=== PATIENT | female | born 1995 | race Hispanic/Latino ===

== ENCOUNTER 2019-11-30 15:34 | Inpatient (IN) | payer OTHER ==
[~2019-11-30] VITALS: Ht 162.6 cm; Wt 96.5 kg
--- OUTSIDE RECORDS SUMMARY | 2019-11-30 15:37 | XMS REPORT ---
Author Author Admin, Adams Organization [facility] Address [address] [place] [address] Phone Allergies, Adverse Reactions, Alerts Allergy Name Reaction Description Start Date Severity Status Provider BACTRIM Critical Active Kranthi Vaz MD Conditions or Problems Problem Name Problem Code Onset Date Status Entry Date Provider Comment Standard Description Annotate 32 Weeks Gestation of Active Kranthi Vaz MD Encounter for unspecified screening of mother BMI 40 - 44.9, adult Active Kranthi Vaz MD Body Mass Index 40.0-44.9, adult DYSURIA 788.1 Active Kranthi Vaz MD Dysuria Supervision of other high risk pregnancies, third trimester Active Kranthi Vaz MD Other high-risk Encounter for supervision of normal first , second trimester Active Kranthi Vaz MD Supervision of normal first Obesity (BMI=30-39.9) Active Kranthi Vaz MD Obesity, unspecified Cervix, screening for malignant neoplasm V76.2 Active Kranthi Vaz MD Screening for malignant neoplasms of the cervix Chronic pain syndrome 338.4 Active Kranthi Vaz MD Chronic pain syndrome Encounter for supervision of other normal , first trimester Active Kranthi Vaz MD Supervision of other normal 30 Weeks Gestation of Inactive Kranthi Vaz MD Encounter for unspecified screening of mother 30 Weeks Gestation of Inactive Kranthi Vaz MD 26 Weeks Gestation of Inactive Kranthi Vaz MD Encounter for unspecified screening of mother 26 Weeks Gestation of Inactive Kranthi Vaz MD 22 Weeks Gestation of Inactive Kranthi Vaz MD Encounter for unspecified screening of mother 22 Weeks Gestation of Inactive Kranthi Vaz MD 19 Weeks Gestation of Inactive Kranthi Vaz MD Encounter for unspecified screening of mother 19 Weeks Gestation of Inactive Kranthi Vaz MD 14 Weeks Gestation of Inactive Kranthi Vaz MD Encounter for unspecified screening of mother 14 Weeks Gestation of Inactive rKanthi Vaz MD Less than 8 weeks gestation of Inactive Kranthi Vaz MD Encounter for unspecified screening of mother Less than 8 weeks gestation of Inactive Kranthi Vaz MD Medication List Medication Instructions Start Date Stop Date Generic Name NDC Status Provider Patient Instruction MACRODANTIN 100 MG ORAL CAPSULE 1 tab by mouth twice a day for 7 days NITROFURANTOIN MACROCRYSTAL 41380542152 Active Kranthi Vaz MD Active BLOOD PRESSURE MONITOR check BP daily (monitor) BLOOD PRESSURE MONITORING 36011256259 Active Kranthi Vaz MD Active VITAFOL ULTRA 29-0.6-0.4-200 MG ORAL CAPSULE take 1 capsule by mouth daily PRENAT-FE [id number]-[id number]-VF-[id number] 99192021355 Active Kranthi Vaz MD Active DIFLUCAN 150 MG ORAL TABLET 1 po x 1 DIFLUCAN 150 MG ORAL TABLET 937510 FLUCONAZOLE Inactive MACROBID 100 MG ORAL CAPSULE 1 pill By Mouth Twice a Day x 10 days MACROBID 100 MG ORAL CAPSULE 6987998 NITROFURANTOIN MONOHYD MACRO Inactive DIFLUCAN 150 MG ORAL TABLET 1 po x 1 FLUCONAZOLE 92420412279 No Longer Active Kranthi Vaz MD Active MACROBID 100 MG ORAL CAPSULE 1 pill By Mouth Twice a Day x 10 days NITROFURANTOIN MONOHYD MACRO 53651681142 No Longer Active Kranthi Vaz MD Active Vital Signs Date Name Value Unit Range Description blood pressure, diastolic 75 mm[Hg] BP zimmerman blood pressure, systolic 112 mm[Hg] BP sys height E&M 64 [in_us] Bdy height pulse rate E&M 94 /min Heart rate respiratory rate E&M 19 /min Resp rate temperature E&M 97.8 [degF] Body temperature weight E&M 240.2 [lb_av] Weight Measured blood pressure, diastolic 82 mm[Hg] BP zimmerman blood pressure, systolic 116 mm[Hg] BP sys height E&M 64 [in_us] Bdy height pulse rate E&M 84 /min Heart rate respiratory rate E&M 18 /min Resp rate temperature E&M 98.5 [degF] Body temperature weight E&M 237.6 [lb_av] Weight Measured blood pressure, diastolic 71 mm[Hg] BP zimmerman blood pressure, systolic 110 mm[Hg] BP sys height E&M 64 [in_us] Bdy height pulse rate E&M 91 /min Heart rate respiratory rate E&M 12 /min Resp rate temperature E&M 98.5 [degF] Body temperature weight E&M 228 [lb_av] Weight Measured blood pressure, diastolic 83 mm[Hg] BP zimmerman blood pressure, systolic 125 mm[Hg] BP sys height E&M 64 [in_us] Bdy height pulse rate E&M 84 /min Heart rate respiratory rate E&M 21 /min Resp rate temperature E&M 98.3 [degF] Body temperature weight E&M 228.6 [lb_av] Weight Measured blood pressure, diastolic 83 mm[Hg] BP zimmerman blood pressure, systolic 137 mm[Hg] BP sys height E&M 64 [in_us] Bdy height pulse rate E&M 83 /min Heart rate respiratory rate E&M 21 /min Resp rate temperature E&M 98.3 [degF] Body temperature weight E&M 222.4 [lb_av] Weight Measured blood pressure, diastolic 84 mm[Hg] BP zimmerman blood pressure, systolic 136 mm[Hg] BP sys height E&M 64 [in_us] Bdy height pulse rate E&M 104 /min Heart rate respiratory rate E&M 21 /min Resp rate temperature E&M 98.3 [degF] Body temperature weight E&M 219.2 [lb_av] Weight Measured blood pressure, diastolic 75 mm[Hg] BP zimmerman blood pressure, systolic 117 mm[Hg] BP sys pulse rate E&M 85 /min Heart rate respiratory rate E&M 17 /min Resp rate weight E&M 218 [lb_av] Weight Measured Diagnostic Results Date Name Value Unit Range Description Lab Report: CBC With Differential/Platelet, Comp. Metabolic Panel (14), ... - Blood bank Rh antibody Negative Negative Lab Report: [id number] 7+Alc-Unbund, Urine Culture, Routine, Result - Toxicology benzodiazepine screen, urine Negative Ubfagv=[id number] Lab Report: CBC With Differential/Platelet, Comp. Metabolic Panel (14), ... - Blood bank ABO blood group A Office Visit: Initial Maternity: - Chemistry beta HCG, urine, semiquantitative positive Lab Report: CBC With Differential/Platelet, Comp. Metabolic Panel (14), ... - Chemistry hepatitis B surface antigen Negative Negative chloride, serum 101 mmol/L 96-106 Lab Report: [id number] 7+Alc-Unbund, Urine Culture, Routine, Result - Toxicology phencyclidine screen, urine Negative ng/mL Cutoff=25 Lab Report: CBC With Differential/Platelet, Comp. Metabolic Panel (14), ... - Chemistry urea nitrogen, blood 7 mg/dL 6-20 Lab Report: CBC With Differential/Platelet, Comp. Metabolic Panel (14), ... - Hematology mean corpuscular hemoglobin concentration, RBC 32.8 G/DL % 31.5-35.7 Office Visit: Initial Maternity: - Microbiology Herpes Simplex Virus Genital no Append: return - Urinalysis nitrite, urine, semiquantitative 2+ Lab Report: CBC With Differential/Platelet, Comp. Metabolic Panel (14), ... - Hematology erythrocyte (RBC) count 4.27 X10E6/UL 10*6/mm3 3.77-5.28 Lab Report: CBC With Differential/Platelet, Comp. Metabolic Panel (14), ... - Chemistry Absolute Neutrophils 6.1 X10E3/UL 10*3/uL 1.4-7.0 urea nitrogen/creatinine ratio, serum 13 9-23 Lab Report: Custom Panel [id number], Fundamental Panel - Toxicology Cystic Fibrosis DNA, Whole Blood Negative Lab Report: CBC With Differential/Platelet, Comp. Metabolic Panel (14), ... - Hematology mean corpuscular volume, RBC 87 fL 79-97 Lab Report: [id number] 7+Alc-Unbund, Urine Culture, Routine, Result - Toxicology cocaine, urine Negative Fdkbov=226 Lab Report: CBC With Differential/Platelet, Comp. Metabolic Panel (14), ... - Hematology monocytes as percent of blood leukocytes 5 % Not Estab. Lab Report: CBC With Differential/Platelet, Comp. Metabolic Panel (14), ... - Chemistry albumin/globulin ratio, serum 1.4 1.2-2.2 creatinine, serum 0.52 mg/dL 0.57-1.00 bilirubin, serum, total 0.3 mg/dL 0.0-1.2 Lab Report: Pap IG, rfx HPV ASCU - Lab Human Papillomavirus test result HPVNotTested Lab Report: CBC With Differential/Platelet, Comp. Metabolic Panel (14), ... - Hematology Eosinophil Absolute Count 0.1 X10E3/UL 10*3/uL 0.0-0.4 Lab Report: Ct, Ng, Trich vag by CYDNEY - Lab chlamydia DNA probe Negative Negative Lab Report: CBC With Differential/Platelet, Comp. Metabolic Panel (14), ... - Chemistry aspartate aminotransferase (SGOT), serum 16 U/L 0-40 Lab Report: CBC With Differential/Platelet, Comp. Metabolic Panel (14), ... - Hematology red blood cell distribution width 14.1 % 12.3-15.4 leukocyte count, blood 8.2 X10E3/UL 10*3/mm3 3.4-10.8 Office Visit: Return: - Figurine Maker estimated delivery date by last menstrual period 07/02/2019 Lab Report: CBC With Differential/Platelet, Comp. Metabolic Panel (14), ... - Chemistry potassium, serum 4.0 mmol/L 3.5-5.2 albumin, serum 3.9 g/dL 3.5-5.5 immature granulocytes, percentage of total cells, blood 0 % Not Estab. Lab Report: CBC With Differential/Platelet, Comp. Metabolic Panel (14), ... - Hematology lymphocyte count, blood, automated 1.5 X10E3/UL 10*3/mm3 0.7-3.1 Lab Report: [id number] 7+Alc-Unbund, Urine Culture, Routine, Result - Toxicology opiates, urine, semiquantitative Negative Yopnmb=043 Lab Report: CBC With Differential/Platelet, Comp. Metabolic Panel (14), ... - Hematology hematocrit, blood 37.2 % 34.0-46.6 Lab Report: Ct, Ng, Trich vag by CYDNEY - Microbiology Neisseria gonorrhoeae DNA probe Negative Negative Lab Report: Urine Culture, Routine, Result - Urinalysis urine culture MUG Lab Report: CBC With Differential/Platelet, Comp. Metabolic Panel (14), ... - Chemistry sodium, serum 139 mmol/L 134-144 Lab Report: AFP, Serum, Open Spina Bifida - Chemistry alpha feto-protein, maternal QUAD screen Report Lab Report: CBC With Differential/Platelet, Comp. Metabolic Panel (14), ... - Hematology neutrophils as percent of blood leukocytes 75 % Not Estab. Lab Report: [id number] 7+Alc-Unbund, Urine Culture, Routine, Result - Toxicology amphetamine screen, urine Negative Ghlilk=[id number] Lab Report: CBC With Differential/Platelet, Comp. Metabolic Panel (14), ... - Hematology basophils as percent of blood leukocytes 0 % Not Estab. Append: return - Urinalysis protein, urine, semiquantitative (dipstick) Neg Lab Report: CBC With Differential/Platelet, Comp. Metabolic Panel (14), ... - Serology rapid plasma reagin antibody, serum Non Reactive Non Reactive Lab Report: CBC With Differential/Platelet, Comp. Metabolic Panel (14), ... - Chemistry carbon dioxide, venous blood 23 mmol/L 20-29 blood glucose, 1 hour after 50 gm oral glucose 104 mg/dL 65-139 Lab Report: [id number] 7+Alc-Unbund, Urine Culture, Routine, Result - Chemistry cannabinoid screen, urine Negative ng/mL Cutoff=50 Lab Report: CBC With Differential/Platelet, Comp. Metabolic Panel (14), ... - Chemistry calcium, serum 8.9 mg/dL 8.7-10.2 alanine aminotransferase (SGPT), serum 22 U/L 0-32 Lab Report: CBC With Differential/Platelet, Comp. Metabolic Panel (14), ... - Hematology mean corpuscular hemoglobin, RBC 28.6 pg 26.6-33.0 Lab Report: CBC With Differential/Platelet, Comp. Metabolic Panel (14), ... - Chemistry protein, total, serum 6.7 g/dL 6.0-8.5 alkaline phosphatase, serum 60 U/L 39-117 Lab Report: CBC With Differential/Platelet, Comp. Metabolic Panel (14), ... - Hematology hemoglobin, blood 12.2 g/dL 11.1-15.9 Lab Report: CBC With Differential/Platelet, Comp. Metabolic Panel (14), ... - Blood bank Rh antigen Positive Lab Report: CBC With Differential/Platelet, Comp. Metabolic Panel (14), ... - Hematology lymphocytes as percent of blood leukocytes 19 % Not Estab. Office Visit: Return: - Figurine Maker estimated date of confinement , mother of baby 07/02/2019 Lab Report: [id number] 7+Alc-Unbund, Urine Culture, Routine, Result - Toxicology barbiturates screen, urine Negative Pwpqty=860 Lab Report: CBC With Differential/Platelet, Comp. Metabolic Panel (14), ... - Genetics/fertility eGFR if 157 mL/min/1.73m2 >59 Lab Report: CBC With Differential/Platelet, Comp. Metabolic Panel (14), ... - Hematology basophil count, absolute 0.0 x10E3/uL 0.0-0.2 Lab Report: CBC With Differential/Platelet, Comp. Metabolic Panel (14), ... - Chemistry globulin, serum 2.8 1.5-4.5 Estimated Glomerular Filtration Rate (calc) 136 mL/min/1.73m2 >59 Lab Report: AFP, Serum, Open Spina Bifida - Chemistry alpha-1 fetoprotein, maternal ,serum, multiples of median 0.74 (?) {MoM} Lab Report: CBC With Differential/Platelet, Comp. Metabolic Panel (14), ... - Hematology eosinophils as percent of blood leukocytes 1 % Not Estab. Lab Report: CBC With Differential/Platelet, Comp. Metabolic Panel (14), ... - Chemistry blood glucose, random 103 mg/dL 65-99 Lab Report: CBC With Differential/Platelet, Comp. Metabolic Panel (14), ... - Hematology monocyte count, blood, automated 0.4 X10E3/UL 10*3/uL 0.1-0.9 Append: return - Urinalysis ketones, urine, by test strip Neg Lab Report: CBC With Differential/Platelet, Comp. Metabolic Panel (14), ... - Hematology platelet count 236 X10E3/UL 10*3/mm3 150-379 Lab Report: AFP, Serum, Open Spina Bifida - Serology alpha-1 fetoprotein, serum 26.0 ng/mL Encounters Date Encounter Provider Code Facility 08:40:42 CDT Est Patient Exp Problem - 32027 Kranthi Vaz MD CPT-49256 [place] [employer] 14:42:23 CDT Est Patient Exp Problem - 48093 Kranthi Vaz MD CPT-31464 [place] [employer] 14:39:46 CDT Est Patient Exp Problem - 77036 Kranthi Vaz MD CPT-49163 [facility] 13:54:10 CDT Est Patient Exp Problem - 43221 Kranthi Vaz MD CPT-40221 [place] [employer] 15:17:28 CDT Est Patient Exp Problem - 66410 Kranthi Vaz MD CPT-25779 [place] [employer] 15:04:30 [employer] Est Patient Exp Problem - 91588 Kranthi Vaz MD CPT-17240 [place] [employer] 14:37:59 [employer] New Patient Detailed - 95790 Kranthi Vaz MD CPT-90345 [place] [employer] Procedures Code Procedure Name Date Entry Date Standard Description CPT-23454 Urinalysis - Dip only - In House 08:40:43 CDT CPT-96151 Est Patient Well Exam (65 & Over) - 69251 14:56:24 CDT CPT-36806 Urinalysis - Dip only - In House 14:56:23 CDT CPT-98603 Urinalysis - Dip only - In House 14:38:01 [employer] CPT-40974 Urinalysis - - In House 14:38:01 [employer] CPT-91138 OB Ultrasound, limited 14:38:01 [employer]IP[employer]
--- OUTSIDE RECORDS SUMMARY | 2019-11-30 15:37 | XMS REPORT | Summary of Care ---
Author Author KRISTIN Hutchinson, MIS Valverde Unknown Address Unknown Phone Unavailable Care Team Providers Care Bottoming Room Inspector Name Role Phone EDER ARCHIBALD M.D. Unavailable Unavailable SAJI VINSON, DENIZ Lang Unavailable Unavailable Elias VINSON, Tom Unavailable Unavailable ERASTO GARDUNO MD, LIV Unavailable Unavailable Unavailable Unavailable Functional Status Name Dates Details Functional status health issues are not documented Status: Name Dates Details Cognitive status health issues are not documented Status: Problems Name Dates Details exam (V24.2, Z39.2) Status: Active Encounter for supervision of normal (V22.1, Z34.90) Status: Active Scoliosis, unspecified scoliosis type, unspecified spinal region (737.30, M41.9) Status: Active Acute pain (338.19, R52) Status: Active Complex regional pain syndrome type 1, affecting unspecified site (337.20, G90.50) Status: Active History of laparoscopic adjustable gastric banding (V45.86, Z98.84) Status: Active Intractable vomiting with nausea, unspecified vomiting type (536.2, R11.2) Status: Active Myelopathy (336.9, G95.9) Status: Active Medications Name Dates Details Phenadoz 25 MG Rectal Suppository INSERT 1 SUPPOSITORY RECTALLY EVERY 12 HOURS NEEDED FOR NAUSEA AND VOMITING. Quantity: 10 EDER ARCHIBALD M.D. 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 History of Complex regional pain syndrome (355.9) Status: Resolved Procedures Procedure Dates Details MRI Spine cervical w/wo contrast 78316 Date: 27-Aug-2019 MRI Spine thoracic w/wo contrast 00697 Date: 27-Aug-2019 MRI Spine lumbar w/wo contrast 36368 Date: 27-Aug-2019 History of Thoracic vertebral fusion Completed Immunization Name Dates Details Immunizations not documented Family History Name Dates Details No pertinent family history (V49.89, Z78.9) Status: Active Name Dates Details No pertinent family history (V49.89, Z78.9) Status: Active Social History Name Dates Details - Status: Name Dates Details Never smoker Vital Signs Date Test Result Details [id number]-[id number] BP Systolic 127 mm[Hg] Status: Comments: Location: LLE; Position: Sitting BP Diastolic 80 mm[Hg] Status: Comments: Location: LLE; Position: Sitting Height 64 in Status: Weight 222 lb Status: Body Mass Index Calculated 38.11 kg/m2 Status: Body Surface Area Calculated 2.04 m2 Status: Temperature 98.6 f Status: Heart Rate 81 /min Status: Results Date Description Value Details [id number] MRI Spine thoracic w/wo contrast 25528 Spine thoracic w/wo contrast MRI Cancel Reason: Other (see comments) Plan of Care Name Dates Details Planned Observations Planned Goals not documented Instructions Name Dates Details Instructions not documented Encounters Appointment; NO NORIEGA M.D. Encounter Diagnosis: Problem not documented On: 05-Jun-2019 9:45 Appointment; EDER ARCHIBALD M.D. Encounter Diagnosis: Problem not documented On: 11-Jul-2019 14:45 Appointment; ALEJANDRO GUZMAN M.D. Encounter Diagnosis: Problem not documented On: 24-Jul-2019 15:45 Appointment; LIV MAURER M.D. Encounter Diagnosis: Problem not documented On: 06-Aug-2019 14:30 Appointment; LIV MAURER M.D. Encounter Diagnosis: Problem not documented On: 15-Aug-2019 15:00 Appointment; KIM QUAN M.D. Encounter Diagnosis: Problem not documented On: 27-Aug-2019 15:00 Appointment; LIV MAURER M.D. Encounter Diagnosis: Problem not documented On: 10-Sep-2019 14:00
--- OUTSIDE RECORDS SUMMARY | 2019-11-30 15:37 | XMS REPORT ---
Author Author [facility] Organization [facility] Address Unknown Phone Unavailable Care Team Providers Care Cement Grinding Mill Operator Name Role Phone Unavailable Unavailable Payers Payer Name Policy Type Policy Number Effective Date Expiration Date Problems This patient has no known problems. Allergies, Adverse Reactions, Alerts Allergy Name Allergy Type Status Severity Reaction(s) Onset Date Inactive Date Treating Clinician Comments sulfamethoxazole DA Active SV 2019-11-16 00:00:00 trimethoprim DA Active SV 2019-11-16 00:00:00 vancomycin DA Active SV 2019-11-16 00:00:00 sulfamethoxazole DA Active SV 2016-04-27 00:00:00 trimethoprim DA Active SV 2016-04-27 00:00:00 vancomycin DA Active SV 2016-04-27 00:00:00 Medications This patient has no known medications. Encounters Start Date/Time End Date/Time Encounter Type Admission Type Attending Clinicians Care Facility Care Department Encounter ID 2019-06-12 10:10:00 Inpatient [facility] [id number] 2017-08-22 08:23:54 Inpatient [facility] [id number] 2019-11-19 14:45:00 2019-11-19 14:45:00 Outpatient [facility] [id number] 2019-09-10 14:30:00 2019-09-10 14:30:00 Outpatient [facility] [id number] 2019-08-15 12:34:00 2019-08-15 12:34:00 Outpatient [facility] [id number] 2019-08-06 14:47:00 2019-08-06 14:47:00 Outpatient [facility] [id number] 2019-07-10 20:51:00 2019-07-10 20:51:00 Emergency [facility] [id number] 2019-07-02 13:23:00 2019-07-02 13:23:00 Emergency E [facility] [id number] 2019-05-23 14:18:00 2019-05-23 14:18:00 [facility] [id number] 2019-05-23 08:01:00 2019-05-23 08:01:00 Outpatient [facility] [id number] 2019-05-23 00:00:00 2019-05-23 00:00:00 Outpatient [facility] [id number] 2019-05-22 14:48:00 2019-05-22 14:48:00 Outpatient [facility] [id number] 2019-05-22 00:00:00 2019-05-22 00:00:00 Emergency [facility] [id number] 2019-04-29 00:00:00 2019-04-29 00:00:00 Outpatient [facility] [id number] 2019-04-29 00:00:00 2019-04-29 00:00:00 Outpatient [facility] [id number] 2019-04-01 00:00:00 2019-04-01 00:00:00 Outpatient [facility] [id number] 2019-03-07 00:00:00 2019-03-07 00:00:00 Outpatient [facility] [id number] 2019-03-06 00:00:00 2019-03-06 00:00:00 Outpatient [facility] [id number] 2019-03-05 19:47:47 2019-03-05 19:47:47 Outpatient [facility] [id number] 2019-03-05 19:31:00 2019-03-05 19:31:00 Emergency [facility] [id number] 2017-09-18 00:00:00 2017-09-18 00:00:00 Outpatient [facility] [id number] 2017-09-13 00:00:00 2017-09-13 00:00:00 Outpatient [facility] [id number] 2017-09-08 15:38:19 2017-09-08 15:38:19 Emergency [facility] [id number] 2017-09-08 14:14:14 2017-09-08 14:14:14 Emergency [facility] [id number] 2017-08-18 07:46:33 2017-08-18 07:46:33 Emergency [facility] [id number] 2017-08-18 07:46:01 2017-08-18 07:46:01 Emergency [facility] [id number] 2017-08-18 03:28:28 2017-08-18 03:28:28 Emergency [facility] [id number] 2017-08-18 02:29:05 2017-08-18 02:29:05 Inpatient [facility] [id number]
[2019-11-30] MEDS ORDERED: MORPHINE SULFATE 2 MG/ML SYR 1ML IV STA ×2 (15:40→16:11)
[2019-11-30] MEDS ORDERED: ONDANSETRON HCL INJ 2MG/ML 2ML 2 MG/ML VIAL IV STA (15:40)
[2019-11-30] MEDS ORDERED: SODIUM CHLORIDE 0.9% 1000ML 1,000 ML IV SCH (15:45)
[2019-11-30] MEDS ORDERED: IOPAMIDOL 370 MG/ML 200 ML INFUS..BTL INJ ONE (15:57)
[2019-11-30] MEDS ORDERED: SODIUM CHLORIDE 0.9% 50ML 50 ML ONE (15:57)
[2019-11-30] MEDS ORDERED: PROMETHAZINE HCL (IM) 25 MG/ML VIAL ONE (16:03)
[2019-11-30] MEDS ORDERED: MORPHINE SULFATE INJ 4 MG/ML INJ 1ML ONE ×2 (16:03→16:14)
[2019-11-30] MEDS ORDERED: ONDANSETRON HCL INJ 2MG/ML 2ML 2 MG/ML VIAL ONE (16:14)
[2019-11-30] MEDS: SODIUM CHLORIDE FLUSH 10 ML SYR INJ PRN ×2 (16:15→20:10)
--- NOTE | 2019-11-30 17:06 | Diagnostic Imaging Report ---
EXAMINATION: CT of the abdomen and pelvis with contrast. TECHNIQUE: Helical CT images of the abdomen and pelvis were performed from the lung bases to the lesser trochanters after the intravenous administration of 100 cc of Isovue 300 and the oral administration of none. Coronal and sagittal reformatted images were obtained.Dose modulation, iterative reconstruction, and/or weight based adjustment of the mA/kV was utilized to reduce the radiation dose to as low as reasonably achievable. COMPARISON: none CLINICAL HISTORY:abdominal pain DISCUSSION: ABDOMEN/PELVIS: LOWER THORAX:Unremarkable. HEPATOBILIARY: No focal hepatic lesions. No intra-or extrahepatic biliary ductal dilation. The gallbladder is normal. SPLEEN: No splenomegaly. PANCREAS: No focal masses or ductal dilatation. ADRENALS: No adrenal nodules. KIDNEYS/URETERS: No hydronephrosis, stones, or solid mass lesions. PELVIC ORGANS/BLADDER: The bladder is normal. PERITONEUM/RETROPERITONEUM: No free air or fluid. LYMPH NODES: No intra-abdominal, retroperitoneal, pelvic or inguinal lymphadenopathy. VESSELS: The celiac trunk,superior and inferior mesenteric and bilateral renal arteries are patent The portal, superior mesenteric and splenic veins are patent. GI TRACT: Prior lap band with normal orientation. Gastrostomy tube enters into the antrum of the stomach. Small bowel obstruction due to adhesion with transition point in the lower midline of the abdomen axial image 62. BONES AND SOFT TISSUE: No bony destructive lesions. Stranding around the umbilicus with foci of gas. IMPRESSION: Small bowel obstruction with transition point in the lower mid abdomen. Gastric lap band with normal orientation and gastrostomy tube in normal position. Signed by: Dr. Jaciel Urias M.D. on 11/30/2019 5:04 PM
[2019-11-30] MEDS ORDERED: SODIUM CHLORIDE 0.9% 1000 ML BAG IV ONE (17:30)
[2019-11-30] MEDS: D5.45%NS/KCL 20MEQ 1,000 ML IV SCH ×2 (17:38→20:09)
[2019-11-30] MEDS ORDERED: LEVOFLOXACIN 500MG/D5W 100ML 100 ML IV SCH (17:45)
[2019-11-30] MEDS ORDERED: LEVOFLOXACIN 500MG/D5W 100ML IV SCH (17:45)
--- NOTE | 2019-11-30 17:51 | NUR ---
dr isaias morales [phone] (pt states this was her gi doctor who told her to come [place] [facility] [place] the [place]ariatric surgeon. pt doesn't know dr name and states her dr is from [facility] [place])
[2019-11-30 19:05] VITALS: BP 114/63
--- NOTE | 2019-11-30 19:32 | NUR ---
Patient arrived to unit via EMS. Vital signs stable, no s/s of distress at this time. C/o pain to LLQ. All safety measures in place. Family at bedside. Will continue to monitor.
--- NOTE | 2019-11-30 20:00 | NUR ---
Patient attached to low continuous suction via PEG tube. Green drainage noted. Will continue to monitor. Addendum: 12/01/19 at 0416 by Sobia Martino RN *intermittent suction
[2019-11-30] MEDS: HYDROMORPHONE 1MG/1ML INJ IV PRN ×2 (20:09→23:48)
[2019-11-30] MEDS: ONDANSETRON HCL INJ 2MG/ML 2ML 2 MG/ML VIAL IV PRN ×2 (20:10→23:48)
[2019-11-30 20:23] VITALS: BP 114/63
[2019-11-30 20:26] VITALS: BP 114/63
[2019-11-30] MEDS: LEVOFLOXACIN 500MG/D5W 100ML 100 ML IV SCH (21:23)
--- NOTE | 2019-11-30 22:10 | NUR ---
DR AG NOTIFIED B/P RECHECKED MANUALLY. INFORMED MD OF NEW ORDERS RECEIVED FROM DR PAYAN. NO NEW ORDERS RECEIVED.
[2019-11-30] MEDS ORDERED: ULTRAM50 MG PO (22:47)
[2019-11-30 23:47] VITALS: BP 114/55
[2019-12-01] VITALS (8 sets, daily range): BP systolic 95–114; BP diastolic 52–71
--- NOTE | 2019-12-01 02:39 | NUR ---
Patient c/o severe abdominal pain. States that Dilaudid isn't helping and that morphine worked better in the ER. Manually removed 350 mL green fluid from PEG tube. Paged Dr. Delgadillo for orders. Awaiting return call at this time.
[2019-12-01] MEDS: ONDANSETRON HCL INJ 2MG/ML 2ML 2 MG/ML VIAL IV PRN ×5 (03:31→22:03)
[2019-12-01] MEDS: HYDROMORPHONE 1MG/1ML INJ IV PRN ×5 (03:31→22:03)
--- NOTE | 2019-12-01 03:31 | NUR ---
Drained an additional 100 ml from PEG tube. Patient reports feeling slightly better. Administered Dilaudid. Patient still attached to low continuous suction. Still awaiting return call from Dr. Delgadillo at this time. Will continue to monitor patient. Addendum: 12/01/19 at 0416 by Sobia Martino RN *intermittent suction
[2019-12-01] MEDS: D5.45%NS/KCL 20MEQ 1,000 ML IV SCH ×4 (04:51→23:57)
[2019-12-01 06:33] LABS: BASOPHILS % 0.4 % (0.0-1.0); EOSINOPHILS # (AUTO) 0.2 (0.0-0.4); EOSINOPHILS % 1.9 % (0.0-6.0); HEMATOCRIT 38.6 % (34.2-44.1); HEMOGLOBIN 11.4 g/dL (12.0-16.0); LYMPHOCYTES # (AUTO) 2.2 (1.0-3.2); LYMPHOCYTES % 22.3 % (18.0-39.1); MEAN CORPUSCULAR HEMOGLOBIN 25.3 pg (28-32); MEAN CORPUSCULAR HGB CONC 29.5 g/dL (31-35); MEAN CORPUSCULAR VOLUME 85.8 fL (81-99); MONOCYTES # (AUTO) 0.8 (0.2-0.8); MONOCYTES % 8.5 % (4.4-11.3); NEUTROPHILS # (AUTO) 6.5 (2.1-6.9); NEUTROPHILS % 66.5 % (38.7-80.0); PLATELET COUNT 281 x10e3/uL (140-360); RED CELL DISTRIBUTION WIDTH 14.6 % (11.7-14.4)
--- NOTE | 2019-12-01 07:00 | NUR ---
BEDSIDE ROUNDS DONE. PT IS SLEEPING, NO S/S OF DISTRESS. CALL LIGHT WITHIN REACH. FAMILY AT THE BEDSIDE
--- NOTE | 2019-12-01 07:05 | NUR ---
Report given to day nurse. Patient resting in bed, no s/s of distress at this time. PEG tube hooked to low intermittent suction. All safety measures in place. Family at bedside.
[2019-12-01 07:09] LABS: ALANINE AMINOTRANSFERASE 60 IU/L (0-55); ALBUMIN 3.3 g/dL (3.5-5.0); ALBUMIN/GLOBULIN RATIO 0.8 (0.8-2.0); ALKALINE PHOSPHATASE 93 IU/L (40-150); ANION GAP 13.8 mmol/L (8-16); CALCIUM 8.9 mg/dL (8.4-10.2); CARBON DIOXIDE 18 mmol/L (22-29); CHLORIDE 107 mmol/L (98-107); CREATININE, SERUM 0.62 mg/dL (0.57-1.11); EST GLOMERULAR FILTRATION RATE > 60 ML/MIN (60-); GLUCOSE 112 mg/dL (74-118); POTASSIUM 3.8 mmol/L (3.5-5.1); SODIUM 135 mmol/L (136-145)
[2019-12-01 07:30] LABS: BLOOD UREA NITROGEN 6 mg/dL (7-26)
[2019-12-01 07:31] LABS: BUN/CREATININE RATIO 10 (6-25)
[2019-12-01] MEDS: ACETAMINOPHEN 325 MG/10 ML UDC NG PRN (18:03)
--- NOTE | 2019-12-01 19:18 | NUR ---
Received bedside report from day nurse. Patient resting in bed, no s/s of distress at this time. All safety measures in place. Family at bedside. Will continue to monitor.
--- NOTE | 2019-12-01 19:34 | Consultation ---
DATE OF CONSULTATION: 12/01/2019 CHIEF COMPLAINT: Abdominal pain, vomiting. HISTORY OF PRESENT ILLNESS: The patient is a 24-year-old female with a history of lap band placement seven years ago for weight loss. The patient stated that since her approximately six months ago, she has been having abdominal pain with vomiting, and intolerance of oral intake. A week ago, the patient had a gastrostomy tube placed in [place] for nutritional support. The patient complained of increasing pain in the last three days. PAST MEDICAL HISTORY: Possible for gastroparesis. PAST SURGICAL HISTORY: Positive for back surgery and lap band in 2013. ALLERGIES: THE PATIENT IS ALLERGIC TO SULFA AND VANCOMYCIN. SOCIAL HISTORY: She does not smoke or drink. PHYSICAL EXAMINATION: VITAL SIGNS: Stable, afebrile. GENERAL: The patient is awake, alert, in moderate discomfort. HEENT: Sclerae anicteric. NECK: Supple. LUNGS: Clear. HEART: Regular rate and rhythm. ABDOMEN: Soft with guarding, tenderness in the infraumbilical region with no rebound. EXTREMITIES: No cyanosis or edema. LABORATORY DATA: The white cell count is 9.7, hemoglobin is 11. Creatinine is 0.6. CT of the abdomen showed intestinal obstruction with transitional point in the lower and mid abdomen. Gastric banding, gastrostomy tube in normal position. ASSESSMENT: Intestinal obstruction, likely secondary to adhesions. PLAN: The G-tube has been placed on suction with some relief of discomfort. The patient probably will need exploratory laparotomy for lysis of adhesions, possible bowel resection to relieve obstruction. Asad Delgadillo MD DNAndreina/MODL /[id number]
[2019-12-01] MEDS: LEVOFLOXACIN 500MG/D5W 100ML 100 ML IV SCH (22:03)
--- NOTE | 2019-12-01 23:09 | History and Physical ---
PRIMARY PHYSICIAN: None. CHIEF COMPLAINT: Abdominal pain with intractable nausea and vomiting. HISTORY OF PRESENT ILLNESS: This is a 24-year-old female who has had nausea and vomiting for over 6 months. So last week she went to [place] to have exploratory surgery and PEG tube was placed at that time. She has returned today with complaints of abdominal distention and pain. She denies any fever, chills, nausea, or vomiting. She denies any dysuria, hematuria, chest pain, shortness of breath, dizziness, headache, melena, or diarrhea. PAST MEDICAL HISTORY: None. PAST SURGICAL HISTORY: 1. She had lap band in 2012. 2. in 2019. 3. Multiple back surgeries. 4. Exploratory abdominal surgery with PEG placement. FAMILY MEDICAL HISTORY: None reported. SOCIAL HISTORY: She denies any tobacco, alcohol, or illicit drug use. ALLERGIES: SULFA DRUGS AND VANCOMYCIN. REVIEW OF SYSTEMS: GENERAL: Fatigue. LUNGS: No shortness of breath or cough. CARDIOLOGY: No chest pain or palpitations. GI: Abdominal pain. PEG tube in place. NEURO: Oriented. MUSCULOSKELETAL: Generalized weakness. PHYSICAL EXAMINATION: VITAL SIGNS: Temperature 97.6, pulse is 67, respirations 18, blood pressure 108/59, pulse ox is 98% on room air. GENERAL: No acute distress. HEENT: Normocephalic, atraumatic. NECK: Supple. LUNGS: Clear to auscultation. CARDIOVASCULAR: Regular rate and rhythm. GI: Lower quadrant pain, PEG tube in place to wall suction. NEUROLOGIC: Alert, awake, and oriented x3. MUSCULOSKELETAL: Moves all extremities. SKIN: Dry above umbilical incision across the belly, seem dry and healing. PSYCH: Calm. LABORATORY DATA: WBC 9.7, hemoglobin 11.4, hematocrit 38.6, and platelet 281. Sodium 135, potassium 3.8, CO2 of 18, BUN is 6, creatinine 0.62, estimated GFR is greater than 60. AST 38, ALT 60. IMAGING: CT abdomen shows small bowel obstruction with transition point in the lower mid abdomen, gastric lap band with normal orientation and G-tube in normal position. IMPRESSION: 1. Small bowel obstruction. Noted on CAT scan of abdomen and pelvis. Surgical team has been consulted. G-tube to suction. Draining green fluid. We will continue with IV fluids and pain management as needed. 2. Recurrent intractable nausea and vomiting. Chronic greater than 6 months. Zofran as needed. GI has been consulted for further evaluation. 3. Elevated LFTs. We will repeat labs in a.m. GI on the case. 4. GI prophylaxis. We will continue with Pepcid IV. 5. Mild hyponatremia. Likely due to poor p.o. intake. We will continue with IV fluid hydration. 6. Deep vein thrombosis prophylaxis. SCDs due to possible surgery. PLAN: Continue IV fluids, antibiotics, pain management. We will await on GI and surgical recommendations. Dictated by BETI Mcrae Lillian Moe MD MY/MODL /[id number]
[2019-12-02] VITALS (8 sets, daily range): BP systolic 86–114; BP diastolic 41–64
[2019-12-02] MEDS: ONDANSETRON HCL INJ 2MG/ML 2ML 2 MG/ML VIAL IV PRN ×5 (03:13→23:58)
[2019-12-02] MEDS: HYDROMORPHONE 1MG/1ML INJ IV PRN ×5 (03:13→23:58)
[2019-12-02] MEDS: D5.45%NS/KCL 20MEQ 1,000 ML IV SCH ×6 (04:43→21:53)
[2019-12-02 06:01] LABS: BASOPHILS % 0.1 % (0.0-1.0); EOSINOPHILS # (AUTO) 0.1 (0.0-0.4); EOSINOPHILS % 1.6 % (0.0-6.0); HEMATOCRIT 33.8 % (34.2-44.1); HEMOGLOBIN 10.3 g/dL (12.0-16.0); LYMPHOCYTES # (AUTO) 1.8 (1.0-3.2); LYMPHOCYTES % 25.8 % (18.0-39.1); MEAN CORPUSCULAR HGB CONC 30.5 g/dL (31-35); MONOCYTES # (AUTO) 0.6 (0.2-0.8); MONOCYTES % 8.7 % (4.4-11.3); NEUTROPHILS # (AUTO) 4.4 (2.1-6.9); NEUTROPHILS % 63.4 % (38.7-80.0); PLATELET COUNT 276 x10e3/uL (140-360); RED BLOOD COUNT 4.12 x10e6/uL (3.6-5.1); RED CELL DISTRIBUTION WIDTH 14.6 % (11.7-14.4)
--- NOTE | 2019-12-02 06:02 | NUR ---
Patient currently off unit for KUB. In stable condition.
--- NOTE | 2019-12-02 06:05 | NUR ---
Patient returned to unit from [facility]. In stable condition. PEG tube reattached to low intermittent suction. All safety measures in place. Family at bedside. Will continue to monitor.
[2019-12-02 06:21] LABS: ALANINE AMINOTRANSFERASE 46 IU/L (0-55); ALBUMIN 3.1 g/dL (3.5-5.0); ALBUMIN/GLOBULIN RATIO 0.9 (0.8-2.0); ALKALINE PHOSPHATASE 76 IU/L (40-150); ANION GAP 12.9 mmol/L (8-16); BLOOD UREA NITROGEN < 5 mg/dL (7-26); CALCIUM 8.8 mg/dL (8.4-10.2); CARBON DIOXIDE 26 mmol/L (22-29); CHLORIDE 102 mmol/L (98-107); CREATININE, SERUM 0.64 mg/dL (0.57-1.11); EST GLOMERULAR FILTRATION RATE > 60 ML/MIN (60-); GLUCOSE 124 mg/dL (74-118); POTASSIUM 3.9 mmol/L (3.5-5.1); SODIUM 137 mmol/L (136-145)
[2019-12-02 06:22] LABS: BUN/CREATININE RATIO 8 (6-25)
--- NOTE | 2019-12-02 06:25 | Diagnostic Imaging Report ---
Abdomen/KUB INDICATION: Obstruction ^SBO COMPARISON: CT abdomen/pelvis 11/30/2019. FINDINGS: Portable, supine image obtained at 0559 hours. Medical Devices: Laparoscopic placed gastric band is in appropriate alignment. Fusion hardware in the lower thoracic spine is incompletely imaged. Visualized hardware is intact Bowel: There are a multiple dilated small bowel loops that measure up to 5.6 cm in diameter. No pneumatosis. There is gaseous distention of the large bowel to 8 cm. No pneumatosis. Free air: None Abdominal calcifications: None over the renal shadows or along the expected course of the ureters. Organomegaly: None Lung bases: Clear Bones: Stable IMPRESSION: Persistent dilated small bowel loops suggestive of severe ileus or partial small bowel obstruction. Gaseous dilatation of the large bowel without pneumatosis. Signed by: Dr. Richard Duarte MD on 12/02/2019 6:22 AM
--- NOTE | 2019-12-02 07:00 | NUR ---
Received patient lying in bed with eyes open. Respiration even and unlabored without SOB. PEG tube to left mid abdomen attached to low intermittent suction, no output noted at this time. Family at bedside. Call light in reach.
[2019-12-02 07:05] LABS: FERRITIN 16.62 ng/mL (4.63-204.00)
--- NOTE | 2019-12-02 07:16 | NUR ---
Bedside report given to day nurse. Patient resting in bed, no s/s of distress at this time. All safety measures in place. Family at bedside.
[2019-12-02] MEDS: FAMOTIDINE 20 MG/2 ML VIAL IV SCH (09:07)
--- NOTE | 2019-12-02 10:00 | NUR ---
Patient is to transfer to room 208. Report given to PAT Meza. Addendum: 12/02/19 at 1031 by Susana Nicole RN Error. Wrong patient.
--- NOTE | 2019-12-02 11:00 | NUR ---
Patient is awake, alert respiration even and unlabored without SOB. Family member at bedside. Peg tube in left mid quadrant in placed, intact and attached to low intermittent suction with greenish-colored mucusy output noted. Education given regarding the importance of not getting anything by mouth at this time because in preparation for possible surgery. Verbalized understanding and states "Yes". Boyfriend at bedside. Call light in reach.
--- NOTE | 2019-12-02 11:52 | Progress Note ---
DATE: 12/02/2019 CONSULTANTS: 1. Dr. Delgadillo with Surgery. 2. Dr. Marshall with GI. CHIEF COMPLAINT: Abdominal pain. SUBJECTIVE: The patient is resting in bed. G-tube connected to suction. Not draining much today. She reports pain is still the same, but not as distended, as she was yesterday. No nausea or vomiting or chest pain. PHYSICAL EXAMINATION: VITAL SIGNS: Temperature 97.7, pulse is 74, respirations 16, blood pressure 93/55, and pulse ox is 97% on room air. GENERAL: No acute distress. HEENT: Normocephalic and atraumatic. NECK: Supple. CARDIOVASCULAR: Regular rate and rhythm. LUNGS: Clear to auscultation. ABDOMEN: Tender with G-tube in place to suction. NEUROLOGIC: Alert, awake, and oriented x3. MUSCULOSKELETAL: Moves all extremities. SKIN: Dry. PSYCH: Calm. LABORATORY DATA: WBC 6.93, hemoglobin 10.3, hematocrit 33.8, and platelet 276. Sodium 137, potassium 3.9, CO2 26, creatinine 0.64, glucose 124, iron 26, amylase 29, lipase 65. Vitamin B12 greater than 2000. Folate is pending. Hepatitis panel is pending. AST 24 and ALT 46. IMAGING: Abdominal x-ray shows persistent dilated small bowel loops, suggestive of severe ileus or partial small bowel obstruction, gaseous dilation of the large bowel without pneumonitis. IMPRESSION: 1. Abdominal pain due to small bowel obstruction. G-tube is connected to suction. X-ray today shows persistent small bowel obstruction. Continue pain management, surgical team likely for exploratory laparotomy of bowel resection and lysis adhesion. 2. Recurrent intractable nausea and vomiting. Greater than 6 months ago. Continue Zofran as needed. GI has been consulted for further evaluation. 3. Elevated LFTs. Now resolved. 4. Mild hyponatremia. Improved with IV fluids. 5. Gastrointestinal prophylaxis. Continue Pepcid. 6. Deep vein thrombosis prophylaxis. SCDs due to possible surgery. PLAN: To continue with IV fluids, antibiotics, prophylactic, and pain management. May require surgical intervention for her small bowel obstruction. Dictated by BETI Mcrae Lillian Moe MD MY/MODL /[id number]
[2019-12-02] MEDS: IRON SUCROSE 100 MG in SODIUM CHLORIDE 0.9% 100 ML 100 ML IV SCH (12:07)
--- NOTE | 2019-12-02 13:16 | NUR ---
Nutrition Intervention Note RD Recommendation(s) for Physician: - When feasible, ADAT to goal of GI Soft - Recommend Ensure Clear TID when diet advanced to Clear Liquids - When feasible recommend MVI with minerals once daily for adequacy - If unable to advance diet soon, consider parenteral nutrition- consult Nutrition for recommendations Plan of Care: RD following, monitoring for tolerance and adequacy Nutrition reason for involvement: Nutrition Risk Trigger-MST 7 RD Assessment (12/02/19) 24 YOF admitted for SBO, abdominal pain, and intractable N/V. Pt seen today per MST screen. Pt reports progressive N/V for over 6 months. Pt denies N/V currently, PEG to suction currently with dark greenish output. Pt can not recall UBW a yr ago, unable to assess wt status as pt recently delivered a baby- pt appears well nourished. Pt reports only tolerating gatorade over the last month. Per chart pt had lap band surgery in 2012, a 6 months ago, and a PEG placement in [place] last month. Pt discussed during am rounds, GI and surgery consulted. KUB this am- continues with obstruction. Pt with no questions at time of visit. Will continue to monitor. Principal Problems/Diagnoses: SBO, abdominal pain, intractable N/V PMH: lap band 2012, PEG placement October 2019 GI: LBM 2/3- liquid, black stool + PEG to LIWS- 550 ml dark greenish output Skin: PEG site, no PU Labs: 2: Na 139, K 3.9. BUN <5, Cr 0.64, Gluc 124 Meds: IV Fe, zofran, dilaudid, pepcid IVF: D5-1/2NS + KCl 20 mEq/L x 1 liter Ht: 64 in Wt: 211.4 lb BMI: 36.3 kg/m2 IBW: 120 lb Malnutrition Evaluation (12/02/19) The patient does not meet criteria for a specified degree of malnutrition at this time. Will re-evaluate at follow-up as appropriate. Energy intake: severe <50% of estimated energy requirements for >1 month Weight loss: ELYSSA Fat loss: none, ample skinfold thickness Muscle loss: none, shoulder round, clavicle not visible Supporting Evidence: Fluid accumulation: none Functional Status: not assessed Nutrition Prescription (Diet Order): NPO Estimated Nutritional Needs: [id number] calories/day (22-25 kcal/kg IBW) 82-109 g protein/day (1.5-2 g pro/kg IBW) Diet Adequacy: Not meeting calorie needs, Not meeting protein needs Diet Tolerance: N/A Diet Education Needs Assessment: Diet education not indicated, patient on temporary/transition diet. Nutrition Care Level: high Nutrition Diagnosis: Inadequate energy and protein intake related to SBO and chronic N/V as evidenced by not meeting needs for greateer than 1 month. Goal: Patient will meet 75-100% of estimated needs by follow up Progress: N/A Interventions: -fiber modified diet, Commercial beverage, Recommended Modifications, Multivitamin/mineral supplement therapy, Collaboration with other providers Monitoring/Evaluation: -Total energy intake, Total protein intake, IVF, Prescription medication, Modified diet, Liquid supplement, Weight change Signed: Mandie Cartagena RD, LD, [facility]
--- NOTE | 2019-12-02 19:00 | NUR ---
Report given to shift production associate. Respiration even and unlabored without SOB. Call light in reach.
[2019-12-02] MEDS: LEVOFLOXACIN 500MG/D5W 100ML 100 ML IV SCH (21:53)
[2019-12-02 23:26] LABS: CLARITY,URINE CLOUDY (CLEAR); COLOR,URINE AMBER (YELLOW)
[2019-12-02 23:27] LABS: BILIRUBIN,URINE NEGATIVE (NEGATIVE); KETONES,URINE NEGATIVE (NEGATIVE); LEUKOCYTE ESTERASE ,URINE 2+ (NEGATIVE); NITRITE,URINE POSITIVE (NEGATIVE); PROTEIN,URINE DIPSTICK NEGATIVE (NEGATIVE); URINE UROBILINOGEN 0.2 mg/dL (0.2 - 1); WBC,URINE (MAN) >50 /HPF (0-5)
[2019-12-02 23:28] LABS: BACTERIA,URINE MANY /HPF; EPITHELIAL CELLS,URINE MANY /LPF; RBC,URINE 21-50 /HPF (0-5); TRANSITIONAL EPI CELLS,URINE MANY
[2019-12-03] VITALS (8 sets, daily range): BP systolic 93–117; BP diastolic 54–70
[2019-12-03] MEDS: D5.45%NS/KCL 20MEQ 1,000 ML IV SCH ×6 (00:32→20:22)
--- NOTE | 2019-12-03 00:35 | NUR ---
BP RECHECKED MANUALLY 120/70 MMHG.
[2019-12-03] MEDS: ONDANSETRON HCL INJ 2MG/ML 2ML 2 MG/ML VIAL IV PRN ×3 (04:00→20:20)
[2019-12-03] MEDS: HYDROMORPHONE 1MG/1ML INJ IV PRN ×3 (04:00→20:20)
--- NOTE | 2019-12-03 08:42 | NUR ---
pt off unit at this time for procedure.
[2019-12-03] MEDS: FAMOTIDINE 20 MG/2 ML VIAL IV SCH (09:00)
[2019-12-03] MEDS: IRON SUCROSE 100 MG in SODIUM CHLORIDE 0.9% 100 ML 100 ML IV SCH (12:36)
[2019-12-03] MEDS ORDERED: DEXAMETHASONE SOD PHOS INJ 4 MG/ML VIAL ONE (17:00)
[2019-12-03] MEDS ORDERED: KETOROLAC TROMETHAMINE 30 MG/ML VIAL ONE (17:00)
[2019-12-03] MEDS ORDERED: CEFOXITIN SOD 1 GM VIAL ONE (17:00)
[2019-12-03] MEDS ORDERED: SEVOFLURANE INHAL SOLN 250 ML PEN BTL ONE (17:00)
[2019-12-03] MEDS ORDERED: ONDANSETRON HCL INJ 2MG/ML 2ML 2 MG/ML VIAL ONE (17:00)
[2019-12-03] MEDS ORDERED: ROCURONIUM BROMIDE 10 MG/ML 5ML VIAL ONE (17:00)
[2019-12-03] MEDS ORDERED: PROPOFOL IV EMULSION 10 MG/ML 20 ML VIAL ONE (17:00)
[2019-12-03] MEDS ORDERED: LIDOCAINE HCL 2% LOCAL INJ 5 ML SDV VIAL INJ ONE (17:00)
[2019-12-03] MEDS ORDERED: MORPHINE SULFATE INJ 10 MG/ML ONE (17:16)
[2019-12-03] MEDS ORDERED: FENTANYL CITRATE/PF 100MCG/2 ML INJ ONE (17:16)
[2019-12-03] MEDS ORDERED: MIDAZOLAM HCL 2 MG/2 ML VIAL ONE (17:16)
--- NOTE | 2019-12-03 18:34 | Progress Note ---
DATE: 12/03/2019 CONSULTANTS: 1. Dr. Delgadillo with Surgery. 2. Dr. Marshall with GI. CHIEF COMPLAINT: Abdominal pain. SUBJECTIVE: The patient is seen in the room post exploratory laparotomy this morning. Reports has severe abdominal pain. Dressing in the lower abdomen intact. She reports abdominal pain, but no chest pain, nausea, or vomiting. PHYSICAL EXAMINATION: VITAL SIGNS: Temperature 97.6, pulse is 70, respirations 16, blood pressure 117/56, and pulse ox is 97% on room air. GENERAL: No acute distress. HEENT: Normocephalic and atraumatic. NECK: Supple. CARDIOVASCULAR: Regular rate and rhythm. LUNGS: Clear to auscultations. ABDOMEN: Tender throughout. G-tube to suction. NEUROLOGIC: Alert, awake, and oriented x3. MUSCULOSKELETAL: Moves all extremities. SKIN: Dry. PSYCH: Calm. LABORATORY DATA: Iron 26. Hepatitis panel negative. IMPRESSION: 1. Abdominal pain due to small bowel obstruction. G-tube in place connected to suction. Status post exploratory laparotomy with adhesiolysis today per Dr. Delgadillo. 2. Recurrent intractable nausea and vomiting. Continue Zofran as needed. GI on the case. 3. Elevated LFTs. Hepatitis panel negative, now improved. 4. Mild hyponatremia. Likely due to poor p.o. intake. Improved with IV fluids. 5. Chronic pain. Continue on Dilaudid for now. 6. Deep venous thrombosis prophylaxis. SCDs due to surgery. PLAN: To continue with IV fluids and antibiotics, prophylactic. Pain and nausea management as needed. Further recommendations per Surgical team. Dictated by BETI Mcrae Lillian Moe MD MY/MODL /[id number]
--- NOTE | 2019-12-03 19:15 | NUR ---
Report given to oncoming nurse, walking rounds complete, pt stable at this this time.
[2019-12-03] MEDS: LEVOFLOXACIN 500MG/D5W 100ML 100 ML IV SCH (21:48)
[2019-12-04] VITALS (8 sets, daily range): BP systolic 98–124; BP diastolic 47–76
[2019-12-04] MEDS: HYDROMORPHONE 1MG/1ML INJ IV PRN ×5 (00:45→21:49)
[2019-12-04] MEDS: ONDANSETRON HCL INJ 2MG/ML 2ML 2 MG/ML VIAL IV PRN ×4 (00:45→17:30)
[2019-12-04] MEDS: D5.45%NS/KCL 20MEQ 1,000 ML IV SCH ×4 (03:08→19:45)
[2019-12-04 05:58] LABS: BASOPHILS % 0.2 % (0.0-1.0); EOSINOPHILS % 0.4 % (0.0-6.0); HEMATOCRIT 31.2 % (34.2-44.1); HEMOGLOBIN 9.9 g/dL (12.0-16.0); LYMPHOCYTES # (AUTO) 1.6 (1.0-3.2); LYMPHOCYTES % 16.3 % (18.0-39.1); MEAN CORPUSCULAR HEMOGLOBIN 25.5 pg (28-32); MEAN CORPUSCULAR HGB CONC 31.7 g/dL (31-35); MEAN CORPUSCULAR VOLUME 80.4 fL (81-99); MONOCYTES # (AUTO) 0.9 (0.2-0.8); MONOCYTES % 9.3 % (4.4-11.3); NEUTROPHILS # (AUTO) 7.3 (2.1-6.9); NEUTROPHILS % 73.2 % (38.7-80.0); PLATELET COUNT 260 x10e3/uL (140-360); RED BLOOD COUNT 3.88 x10e6/uL (3.6-5.1); RED CELL DISTRIBUTION WIDTH 15.1 % (11.7-14.4)
[2019-12-04 06:29] LABS: ANION GAP 12.9 mmol/L (8-16); BLOOD UREA NITROGEN < 5 mg/dL (7-26); CALCIUM 7.8 mg/dL (8.4-10.2); CARBON DIOXIDE 22 mmol/L (22-29); CHLORIDE 107 mmol/L (98-107); CREATININE, SERUM 0.75 mg/dL (0.57-1.11); EST GLOMERULAR FILTRATION RATE > 60 ML/MIN (60-); GLUCOSE 112 mg/dL (74-118); POTASSIUM 3.9 mmol/L (3.5-5.1); SODIUM 138 mmol/L (136-145)
[2019-12-04 06:30] LABS: BUN/CREATININE RATIO 7 (6-25)
[2019-12-04] MEDS: FAMOTIDINE 20 MG/2 ML VIAL IV SCH (09:25)
--- NOTE | 2019-12-04 09:27 | NUR ---
MD BENITEZ INTO SEE PT, DISCUSSED POC, PT EDUCATED OF IMPORTANCE OF GETTING OOB, PT VERBALIZED UNDERSTANDING, PT REPORTS TOLERATING ICE CHIPS EVEN "THOUGH SHE DOESN'T EVER EAT OR DRINK AT HOME", THIS IS "WHY SHE GOT THE PEG TUBE", CALL LIGHT WITHIN REACH
[2019-12-04] MEDS ORDERED: SODIUM CHLORIDE 0.9% 250ML 250 ML ONE (11:28)
[2019-12-04] MEDS: IRON SUCROSE 100 MG in SODIUM CHLORIDE 0.9% 100 ML 100 ML IV SCH (11:51)
--- NOTE | 2019-12-04 17:00 | NUR ---
TELEPHONED MD BENITEZ TO MAKE AWARE OF ELEVATED TEMP, AWAITING CALL BACK
--- NOTE | 2019-12-04 17:38 | NUR ---
MEDICATED PER MD ORDER FOR 08/08 ABD PAIN, PT REFUSING TO GET OOB TO USE BEDSIDE COMMODE AT THIS TIME, STATES "TOO MUCH PAIN", BED ACE GIVEN PER REQUEST, CALL LIGHT WITHIN REACH, FAMILY AT SIDE
--- NOTE | 2019-12-04 18:22 | NUR ---
PT VOIDED IN BEDPAN, LEAKED ON SHEETS, PT STOOD AT BEDSIDE WHILE LINENS AND GOWN CHANGED, ASSISTED BACK TO BED, CALL LIGHT WITHIN REACH
--- NOTE | 2019-12-04 18:55 | Progress Note ---
DATE: 12/04/2019 CONSULTANTS: 1. Dr. Delgadillo with Surgery. 2. Dr. Marshall with GI. CHIEF COMPLAINT: Abdominal pain. SUBJECTIVE: The patient is still complaining of severe abdominal pain. Surgical dressing looks intact. But still with severe abdominal pain and suction to the G-tube is not draining much. She denies any nausea, vomiting, or chest pain. PHYSICAL EXAMINATION: VITAL SIGNS: Temperature is 99.4, pulse is 90, respirations 16, blood pressure 115/76, and pulse ox is 95% on room air. GENERAL: No acute distress. HEENT: Normocephalic and atraumatic. NECK: Supple. CARDIOVASCULAR: Regular rate and rhythm. LUNGS: Clear to auscultation. ABDOMEN: Very tender to touch. G-tube to suction. NEUROLOGIC: Alert, awake, and oriented x3. MUSCULOSKELETAL: Moves all extremities. SKIN: Dry. PSYCH: Calm. LABORATORY DATA: WBC 9.93, hemoglobin is 9.9, hematocrit 31.2, and platelets 260. Sodium 138, potassium 3.9, BUN is less than 7, creatinine is 0.75, estimated GFR greater than 60, and calcium 7.6. Cultures negative so far. IMPRESSION: 1. Abdominal pain severe due to small bowel obstruction. Status post exploratory laparotomy with lysis of adhesion. G-tube still connected to suction, not draining much. We will consult Pain Management. 2. Recurrent intractable nausea and vomiting. Has G-tube as a result in [place]. We will continue with Zofran as needed and GI on the case. 3. Elevated LFTs. Hepatitis panel is negative. LFTs are improved. 4. Chronic pain. Continue on Dilaudid for now and consult Pain Management for further assistance. 5. Deep vein thrombosis prophylaxis. SCDs due to recent surgery. PLAN: To continue IV fluids and IV antibiotics. We will consult Pain Management for chronic pain. She is passing gas, further recommendation per GI and Surgical team. Dictated by BETI Mcrae Lillian Moe MD MY/MODL /[id number]
--- NOTE | 2019-12-04 18:55 | NUR ---
RECEIVED BEDSIDE SHIFT REPORT FROM PREVIOUS NURSE. CALL LIGHT WITHIN REACH. PATIENT IN BED. MOM AND BOYFRIEND AT THE BEDSIDE.
[2019-12-04] MEDS: ACETAMINOPHEN 325 MG/10 ML UDC NG PRN (19:53)
[2019-12-04] MEDS: LEVOFLOXACIN 500MG/D5W 100ML 100 ML IV SCH (21:39)
[2019-12-05] VITALS (7 sets, daily range): BP systolic 92–104; BP diastolic 47–63
--- NOTE | 2019-12-05 00:12 | Diagnostic Imaging Report ---
EXAMINATION: CHEST SINGLE (PORTABLE) INDICATION: Fever. COMPARISON: None FINDINGS: TUBES and LINES: None. LUNGS: Lungs are well inflated. Patchy density in the lung bases may represent atelectasis, however, aspiration or developing pneumonia cannot be excluded. PLEURA: No pleural effusion or pneumothorax. HEART AND MEDIASTINUM: The cardiomediastinal silhouette is unremarkable. BONES AND SOFT TISSUES: Fusion of the thoracic spine with transpedicular screws system and interconnecting rods. UPPER ABDOMEN: No free air under the diaphragm. IMPRESSION: Patchy density in the lung bases may represent atelectasis, however, aspiration or developing pneumonia cannot be excluded. Signed by: Dr. Ortega Turcios M.D. on 12/05/2019 12:09 AM
[2019-12-05] MEDS: D5.45%NS/KCL 20MEQ 1,000 ML IV SCH ×4 (02:26→19:45)
--- NOTE | 2019-12-05 03:12 | NUR ---
CALLED DR. AG AND LEFT A VOICEMAIL BECAUSE THE PATIENT'S IV IS LEAKING. I HAD THE CHARGE NURSE, ER NURSE, ICU NURSE, AND [facility] MEDICINE SPECIALIST TRY AND THE LINE BLEW SO THEY ALL SUGGESTED THE PATIENT TO HAVE A PICC LINE PLACED. NOW WAITING FOR DR. AG TO CALL BACK TO GIVE US AN ORDER FOR A PICC LINE
--- NOTE | 2019-12-05 03:26 | NUR ---
DR. AG CALLED BACK AND GAVE THE ORDER FOR THE PATIENT TO HAVE A PICC LINE PLACED
--- NOTE | 2019-12-05 04:45 | NUR ---
PATIENT ASKING FOR PAIN MEDICATION BUT SHE HAS NO IV ACCESS AND SAID THE NG PAIN MEDICATION IS NOT HELPING. PICC LINE PLACEMENT PERSON IS HERE TO START A PICC AND SHE REFUSES TO LAY FLAT IN THE BED. SHE WAS EDUCATED ON THE RISK AND STILL DOES NOT WANT TO LAY FLAT.
--- NOTE | 2019-12-05 04:50 | NUR ---
CALLED DR. Beverly HANNA OFFICE BECAUSE PATIENT REQUESTING THE GI DOCTOR TO DO SOMETHING WITH HER PEG TUBE BECAUSE SHE FEELS IT IS NOT DRAINING. WAITING FOR Beverly HANNA TO CALL BACK.
--- NOTE | 2019-12-05 06:08 | Diagnostic Imaging Report ---
EXAMINATION: CHEST XRAY LINE PLACEMENT INDICATION: PICC placement. COMPARISON: 12/04/2019. FINDINGS: TUBES and LINES: Left upper extremity PICC has been placed with distal tip projected on the cavoatrial junction. LUNGS: Bibasilar patchy densities had improved. PLEURA: No pleural effusion or pneumothorax. HEART AND MEDIASTINUM: The cardiomediastinal silhouette is unremarkable. BONES AND SOFT TISSUES: Fusion of the thoracic spine with transpedicular screws system and interconnecting rods. UPPER ABDOMEN: No free air under the diaphragm. IMPRESSION: Left upper extremity PICC has been placed with distal tip projected on the cavoatrial junction. Signed by: Dr. Ortega Turcios M.D. on 12/05/2019 6:06 AM
--- NOTE | 2019-12-05 06:11 | NUR ---
LAB CALLED BECAUSE THE PATIENT HAS A HEMOGLOBIN OF 6.7 AND HCT OF 20.4. CALLED DR. Cherelle REYNOLDS OFFICE TO TELL THE HIM ABOUT THE CRITICAL LAB RESULTS. WAITING FOR HIM TO CALL BACK Addendum: 12/05/19 at 0714 by Reina Lee RN PLEASE IGNORE. NOTE WRITTEN FOR WRONG PATIENT
[2019-12-05] MEDS: HYDROMORPHONE 1MG/1ML INJ IV PRN ×5 (06:16→23:30)
[2019-12-05] MEDS: ONDANSETRON HCL INJ 2MG/ML 2ML 2 MG/ML VIAL IV PRN ×5 (06:18→23:30)
--- NOTE | 2019-12-05 07:14 | NUR ---
GAVE BEDSIDE SHIFT REPORT TO ONCOMING NURSE. CALL LIGHT WITHIN REACH. PATIENT IN BED. BOYFRIEND AT BEDSIDE.
[2019-12-05] MEDS: FAMOTIDINE 20 MG/2 ML VIAL IV SCH (09:00)
[2019-12-05] MEDS: IRON SUCROSE 100 MG in SODIUM CHLORIDE 0.9% 100 ML 100 ML IV SCH (12:00)
[2019-12-05 12:46] LABS: BASOPHILS % 0.4 % (0.0-1.0); EOSINOPHILS # (AUTO) 0.1 (0.0-0.4); EOSINOPHILS % 1.6 % (0.0-6.0); HEMATOCRIT 28.2 % (34.2-44.1); HEMOGLOBIN 8.8 g/dL (12.0-16.0); LYMPHOCYTES # (AUTO) 1.5 (1.0-3.2); LYMPHOCYTES % 20.3 % (18.0-39.1); MEAN CORPUSCULAR HEMOGLOBIN 25.3 pg (28-32); MEAN CORPUSCULAR HGB CONC 31.2 g/dL (31-35); MONOCYTES # (AUTO) 0.7 (0.2-0.8); MONOCYTES % 9.3 % (4.4-11.3); NEUTROPHILS # (AUTO) 4.9 (2.1-6.9); NEUTROPHILS % 67.2 % (38.7-80.0); PLATELET COUNT 246 x10e3/uL (140-360); RED BLOOD COUNT 3.48 x10e6/uL (3.6-5.1); RED CELL DISTRIBUTION WIDTH 15.3 % (11.7-14.4)
[2019-12-05] MEDS ORDERED: FENTANYL 25 MCG/HR PATCH TOP SCH (14:00)
--- NOTE | 2019-12-05 14:17 | Diagnostic Imaging Report ---
Exam: KUB - 2 views Indication: Abdominal pain, bowel obstruction Comparison: KUB of 12/02/2019 Findings: Gastric lap band partially visualized. Numerous loops of dilated air-filled large and small bowel. Extent of small bowel dilation is increased compared to the KUB of 12/02/2019 with dilated loops now measuring up to 4.1 cm maximum diameter. No free air. No acute osseous injury. Partially visualized thoracic spine fusion hardware. Surgical skin bronwyn overlie the lower abdomen. Impression: Findings of small bowel obstruction versus postoperative ileus with small bowel loops measuring up to 4.1cm. No free air. Signed by: Julio César Talbert MD on 12/05/2019 2:14 PM
--- NOTE | 2019-12-05 16:35 | NUR ---
PT WHEELED OFF UNIT FOR KUB, NO CHANGE IN CONDITION, BACK IN ROOM
--- NOTE | 2019-12-05 18:36 | Progress Note ---
DATE: 12/05/2019 CONSULTANTS: 1. Dr. Delgadillo with Surgery. 2. Dr. Marshall with GI. 3. Dr. Christian with Pain Management. CHIEF COMPLAINT: Abdominal pain. SUBJECTIVE: The patient is reporting severe pain still. Surgical dressing is intact, reports had ice chips overnight, which increased her pain. G-tube is connected to suction, but not draining much. She denies any nausea or vomiting or chest pain. PHYSICAL EXAMINATION: VITAL SIGNS: Temperature 98.2, pulse is 72, BP is 93/70, respirations 16, and SpO2 is 98% on room air. GENERAL: No acute distress. HEENT: Normocephalic and atraumatic. NECK: Supple. CARDIOVASCULAR: Regular rate and rhythm. LUNGS: Clear to auscultation. ABDOMEN: Very tender to touch. G-tube to suction. NEUROLOGIC: Alert, awake, and oriented x3. MUSCULOSKELETAL: Moves all extremities. SKIN: Dry. PSYCH: Calm. LABORATORY DATA: WBC 7.3, hemoglobin 8.8, hematocrit is 28.2, and platelet is 246. Urine culture is mixed contamination. IMAGING: PICC line in place and an abdominal x-ray today shows small bowel obstruction versus postoperative ileus with small bowel loops, measuring up to 4.1 cm. No free air. IMPRESSION: 1. Abdominal pain, increased due to small bowel obstruction. Status post exploratory laparotomy with lysis of adhesion. G-tube connected to suction. Repeat KUB shows possible small bowel obstruction versus ileus. Surgical team on the case. 2. Recurrent intractable nausea and vomiting. Not able to tolerate ice. We will continue with Zofran as needed and GI consulted. 3. Elevated LFTs. Hepatitis panel is negative. LFTs have improved. 4. Chronic pain. We will continue with Dilaudid and Pain Management has recommended fentanyl patch as well. 5. Deep vein thrombosis prophylaxis. SCDs due to recent surgery. PLAN: To continue with IV fluids for hydration and IV antibiotics. We will continue with pain management and encouraged to ambulate as tolerated. Dictated by BETI Mcrae Kieraching Jaciel Moe MD MY/MODL /[id number]
--- NOTE | 2019-12-05 18:48 | NUR ---
TELEPHONED MD BENITEZ TO MAKE AWARE OF KUB RESULTS, SPOKE WITH BETTY, AWAITING CALL BACK
--- NOTE | 2019-12-05 18:55 | NUR ---
RECEIVED BEDSIDE SHIFT REPORT FROM PREVIOUS NURSE. CALL LIGHT WITHIN REACH. PATIENT IN BED. PATIENT'S FAMILY AT THE BEDSIDE.
--- NOTE | 2019-12-05 19:06 | NUR ---
SPOKE WITH MD BENITEZ, MADE AWARE OF KUB AND LAB RESULTS, ORDERS NOTED FOR LABS IN AM
[2019-12-05] MEDS: FENTANYL 25 MCG/HR PATCH TOP SCH (19:37)
[2019-12-05] MEDS: LEVOFLOXACIN 500MG/D5W 100ML 100 ML IV SCH (21:27)
[2019-12-06] VITALS (8 sets, daily range): BP systolic 89–121; BP diastolic 55–65
[2019-12-06] MEDS: HYDROMORPHONE 1MG/1ML INJ IV PRN (04:29)
[2019-12-06] MEDS: ONDANSETRON HCL INJ 2MG/ML 2ML 2 MG/ML VIAL IV PRN ×5 (04:29→22:09)
[2019-12-06] MEDS: D5.45%NS/KCL 20MEQ 1,000 ML IV SCH ×3 (04:39→18:35)
[2019-12-06 05:12] LABS: BASOPHILS % 0.5 % (0.0-1.0); EOSINOPHILS # (AUTO) 0.2 (0.0-0.4); EOSINOPHILS % 3.2 % (0.0-6.0); HEMATOCRIT 28.4 % (34.2-44.1); HEMOGLOBIN 8.7 g/dL (12.0-16.0); LYMPHOCYTES # (AUTO) 1.7 (1.0-3.2); LYMPHOCYTES % 29.3 % (18.0-39.1); MEAN CORPUSCULAR HEMOGLOBIN 25.3 pg (28-32); MEAN CORPUSCULAR HGB CONC 30.6 g/dL (31-35); MEAN CORPUSCULAR VOLUME 82.6 fL (81-99); MONOCYTES # (AUTO) 0.6 (0.2-0.8); MONOCYTES % 9.6 % (4.4-11.3); NEUTROPHILS # (AUTO) 3.3 (2.1-6.9); NEUTROPHILS % 56.2 % (38.7-80.0); PLATELET COUNT 254 x10e3/uL (140-360); RED BLOOD COUNT 3.44 x10e6/uL (3.6-5.1); RED CELL DISTRIBUTION WIDTH 15.4 % (11.7-14.4)
[2019-12-06 05:35] LABS: ANION GAP 9.6 mmol/L (8-16); BLOOD UREA NITROGEN < 5 mg/dL (7-26); CALCIUM 7.8 mg/dL (8.4-10.2); CARBON DIOXIDE 25 mmol/L (22-29); CHLORIDE 106 mmol/L (98-107); CREATININE, SERUM 0.68 mg/dL (0.57-1.11); EST GLOMERULAR FILTRATION RATE > 60 ML/MIN (60-); GLUCOSE 98 mg/dL (74-118); POTASSIUM 3.6 mmol/L (3.5-5.1); SODIUM 137 mmol/L (136-145)
[2019-12-06 05:42] LABS: BUN/CREATININE RATIO 7 (6-25)
--- NOTE | 2019-12-06 06:58 | NUR ---
Received patient lying in bed with eyes closed. Respiration even and unlabored without SOB. Call light in reach. PEG tube in placed, intact connected to low intermittent suction. Call light in reach.
--- NOTE | 2019-12-06 07:25 | NUR ---
GAVE BEDSIDE SHIFT REPORT TO ONCOMING NURSE. CALL LIGHT WITHIN REACH. PATIENT ASLEEP IN BED. BOYFRIEND AT THE BEDSIDE. PATIENT IN NO PAIN OR DISTRESS.
--- NOTE | 2019-12-06 08:09 | NUR ---
Given verbal order by Campos Goode Dilaudid 2 mg IV for severe pain.
[2019-12-06] MEDS: HYDROMORPHONE 2MG/ML 2 MG/ML ML IV PRN ×4 (09:36→22:09)
[2019-12-06] MEDS: FAMOTIDINE 20 MG/2 ML VIAL IV SCH (09:36)
--- NOTE | 2019-12-06 17:15 | Diagnostic Imaging Report ---
Abdomen, 1 view. History: Abdominal pain, small bowel obstruction. Findings: There is decreased small bowel dilatation. Air-filled large bowel is also present. Surgical bronwyn are present overlying the pelvis. There are no masses or abnormal calcifications. The osseous structures are intact. IMPRESSION: Decreased small bowel dilatation is suggestive of improving ileus. Signed by: Andrew Paula on 12/06/2019 5:12 PM
--- NOTE | 2019-12-06 19:07 | NUR ---
Report given to maintenance supervisor 2nd shift. Respiration even and unlabored without SOB. Call light in reach. Family at bedside.
--- NOTE | 2019-12-06 20:31 | Progress Note ---
DATE: 12/06/2019 CONSULTANTS: 1. Dr. Delgadillo with Surgery. 2. Dr. Marshall with GI. 3. Dr. Christian with Pain Management. CHIEF COMPLAINT: Abdominal pain, severe. SUBJECTIVE: Reports abdominal pain is still severe. Surgical site intact, n.p.o. with G-tube is connected to suction. She denies any nausea or vomiting. Dilaudid is increased to 2 mg. PHYSICAL EXAMINATION: VITAL SIGNS: Temperature 97.5, pulse is 79, respirations 18, blood pressure 99/58, and pulse ox is 99% on room air. GENERAL: No acute distress. HEENT: Normocephalic, atraumatic. NECK: Supple. CARDIOVASCULAR: Regular rate and rhythm. LUNGS: Clear to auscultation. ABDOMEN: Very tender to touch. G-tube to suction. NEUROLOGIC: Alert, awake, and oriented x3. MUSCULOSKELETAL: Moves all extremities. SKIN: Dry. PSYCH: Calm. LABORATORY DATA: WBC 5.91, hemoglobin 8.7, hematocrit is 28.4, and platelet 254. Sodium 137, potassium 3.6, creatinine 0.68, calcium 7.8. IMAGING: Abdominal x-ray shows decreased small bowel dilation, suggesting improving ileus. IMPRESSION: 1. Abdominal pain due to ileus. Status post exploratory laparotomy with lysis of adhesion. G-tube connected to suction. Repeat KUB today, shows improving ileus. Surgical team on the case. 2. Recurrent intractable nausea and vomiting. Not able to tolerate ice. We will continue with Zofran as needed. GI on the case. 3. Elevated LFTs. Hepatitis panel is negative. LFTs improving. 4. Chronic pain. Dilaudid has been increased to 2 mg for pain management and fentanyl patch. 5. Iron deficiency anemia. We will give iron transfusions. 6. Poor nutrition, p.o. intake. We will start on TPN per Surgical recommendations. 7. Deep vein thrombosis prophylaxis. SCDs. Dictated by BETI Mcrae Lillian Moe MD MY/MODL /[id number]
[2019-12-06] MEDS: LEVOFLOXACIN 500MG/D5W 100ML 100 ML IV SCH (21:30)
[2019-12-07] VITALS (8 sets, daily range): BP systolic 94–116; BP diastolic 53–70
[2019-12-07] MEDS: ONDANSETRON HCL INJ 2MG/ML 2ML 2 MG/ML VIAL IV PRN ×2 (02:18→06:20)
[2019-12-07] MEDS: HYDROMORPHONE 2MG/ML 2 MG/ML ML IV PRN ×6 (02:18→22:46)
[2019-12-07] MEDS: D5.45%NS/KCL 20MEQ 1,000 ML IV SCH ×4 (03:20→21:02)
[2019-12-07 06:31] LABS: ALANINE AMINOTRANSFERASE 24 IU/L (0-55); ALBUMIN 2.2 g/dL (3.5-5.0); ALBUMIN/GLOBULIN RATIO 0.6 (0.8-2.0); ALKALINE PHOSPHATASE 80 IU/L (40-150); ANION GAP 12.7 mmol/L (8-16); BILIRUBIN,DIRECT 0.2 mg/dL (0.0-0.5); CALCIUM 7.9 mg/dL (8.4-10.2); CARBON DIOXIDE 24 mmol/L (22-29); CHLORIDE 105 mmol/L (98-107); EST GLOMERULAR FILTRATION RATE > 60 ML/MIN (60-); GLUCOSE 100 mg/dL (74-118); MAGNESIUM 1.6 MG/DL (1.3-2.1); PHOSPHORUS 4.2 MG/DL (2.3-4.7); POTASSIUM 3.7 mmol/L (3.5-5.1); SODIUM 138 mmol/L (136-145); TRIGLYCERIDES 101 MG/DL (0-149)
[2019-12-07 06:39] LABS: CALCIUM IONIZED 1.2 mmol/L (1.09-1.30)
--- NOTE | 2019-12-07 07:00 | NUR ---
RECEIVED PATIENT AWAKE RESTING IN BED NO S/S OF DISTRESS. BED LOW, WHEELS LOCKED, SIDE RAILS X2. CALL LIGHT IN REACH WILL CONTINUE TO MONITOR PATIENT.
[2019-12-07 07:16] LABS: BLOOD UREA NITROGEN < 2 mg/dL (7-26); BUN/CREATININE RATIO 3 (6-25)
[2019-12-07 07:35] LABS: BASOPHILS % 0.6 % (0.0-1.0); EOSINOPHILS # (AUTO) 0.2 (0.0-0.4); HEMOGLOBIN 8.6 g/dL (12.0-16.0); LYMPHOCYTES # (AUTO) 1.9 (1.0-3.2); LYMPHOCYTES % 38.6 % (18.0-39.1); MEAN CORPUSCULAR HEMOGLOBIN 25.5 pg (28-32); MEAN CORPUSCULAR HGB CONC 30.7 g/dL (31-35); MEAN CORPUSCULAR VOLUME 83.1 fL (81-99); MONOCYTES # (AUTO) 0.5 (0.2-0.8); MONOCYTES % 8.9 % (4.4-11.3); NEUTROPHILS # (AUTO) 2.4 (2.1-6.9); NEUTROPHILS % 47.1 % (38.7-80.0); PLATELET COUNT 267 x10e3/uL (140-360); RED BLOOD COUNT 3.37 x10e6/uL (3.6-5.1); RED CELL DISTRIBUTION WIDTH 15.5 % (11.7-14.4)
[2019-12-07] MEDS: IRON SUCROSE 100 MG in SODIUM CHLORIDE 0.9% 100 ML 100 ML IV SCH (07:57)
[2019-12-07] MEDS: FAMOTIDINE 20 MG/2 ML VIAL IV SCH (07:57)
[2019-12-07] MEDS ORDERED: IRON SUCROSE 100 MG in SODIUM CHLORIDE 0.9% 100 ML 100 ML IV SCH (09:00)
--- NOTE | 2019-12-07 10:15 | NUR ---
PATIENT A/O X3, EVEN RESPIRATIONS ON RA. LUNG SOUNDS CLEAR TO AUSCULTATION. BOWEL SOUNDS HYPOACTIVE. SILVIA PICC LINE IN PLACE WITH IVF @ 150 CC/HR. TELEMETRY #28 SR. PATIENT GETS UP WITH ASSISTANCE. ABDOMINAL INCISION OPEN TO AIR, PRESENT ON ADMISSION. PEG TUBE TO SUCTION. PEG TUBE PRESENT ON ADMISSION. LOWER ABDOMINAL DRESSING, MINIMAL DRAINAGE, INTACT. PATIENT STATES LAST BOWEL MOVEMENT WAS MONDAY NIGHT. PAIN MEDICATION AVAILABLE PRN. CALL LIGHT IN REACH WILL CONTINUE TO MONITOR PATIENT.
--- NOTE | 2019-12-07 13:15 | NUR ---
PATIENT LEFT FOR KUB AT THIS TIME VIA BED IN STABLE CONDITION.
--- NOTE | 2019-12-07 13:45 | Diagnostic Imaging Report ---
Exam: Abdominal film Clinical History: small bowel obstruction Comparison: 12/06/2019 DISCUSSION: Continued decrease in the air-filled loops of small bowel. The majority of the air is within the colon and nondilated. IMPRESSION: 1. Continued improvement obstruction/ileus Signed by: Dr. Jaciel Urias M.D. on 12/07/2019 1:43 PM
--- NOTE | 2019-12-07 15:09 | NUR ---
attempted tx 2x today, once in the am and in the pm and pt refusing both times . f/u on monday Addendum: 12/07/19 at 1509 by Arthur Camargo PTA Amended: Links added.
--- NOTE | 2019-12-07 18:51 | Progress Note ---
DATE: 12/07/2019 CONSULTANTS: 1. Dr. Delgadillo with Surgery. 2. Dr. Marshall with GI. 3. Dr. Christian with Pain Management. CHIEF COMPLAINT: Abdominal pain. SUBJECTIVE: Remains in severe abdominal pain. Still n.p.o., with IV fluid hydration. She denies any nausea, vomiting, or chest pain. We will start on TPN IV. PHYSICAL EXAMINATION: VITAL SIGNS: Temperature 97.8, pulse is 84, respirations 16, blood pressure 116/56, and pulse ox is 91% on room air. GENERAL: No acute distress. HEENT: Normocephalic and atraumatic. NECK: Supple. CARDIOVASCULAR: Regular rate and rhythm. LUNGS: Clear to auscultations. ABDOMEN: Very tender to touch. G-tube to suction. Surgical site intact. NEUROLOGIC: Alert, awake, and oriented x3. MUSCULOSKELETAL: Moves all extremities. SKIN: Dry. PSYCH: Calm. LABORATORY DATA: WBC 5.0, hemoglobin 8.6, hematocrit 28.0, and platelet is 267. ESR is 36. Sodium 138, potassium 3.7, BUN is less than 2, creatinine 0.7, estimated GFR greater than 60, and calcium is 7.9. AST 24 and ALT 24. Total protein 5.6 and globulin 3.4. IMAGING: KUB shows continued improvement of obstruction/ileus. IMPRESSION: 1. Severe abdominal pain due to ileus. Status post exploratory laparotomy with lysis of adhesion. G-tube connected to suction. Repeat KUB today shows improvement of ileus/obstruction. 2. Recurrent intractable nausea and vomiting. Unable to tolerate ice or food. We will continue with Zofran as needed and GI on the case. 3. Elevated LFTs. Hepatitis panel is negative. LFTs are now within normal limits. 4. Chronic pain. Pain Management has been consulted and is currently on Dilaudid 2 mg. 5. Iron deficiency anemia, was given iron transfusions. 6. Mild protein malnutrition. We will start on TPN for short-term nutrition requirements. 7. Deep vein thrombosis prophylaxis. SCDs due to anemia. PLAN: To continue with IV fluids, pain management, and we will start TPN tonight. Further recommendations per Surgical team. Dictated by BETI Mcrae Yiching Jaciel Moe, MD MY/CLARENCEL /[id number]
[2019-12-07] MEDS: CENTRAL TPN FORMULA 1 BAG IV SCH (20:10)
[2019-12-07] MEDS: LEVOFLOXACIN 500MG/D5W 100ML 100 ML IV SCH (21:02)
[2019-12-08] VITALS (8 sets, daily range): BP systolic 99–121; BP diastolic 54–79
[2019-12-08] MEDS: D5.45%NS/KCL 20MEQ 1,000 ML IV SCH (02:31)
[2019-12-08] MEDS: HYDROMORPHONE 2MG/ML 2 MG/ML ML IV PRN ×5 (02:50→20:26)
--- NOTE | 2019-12-08 06:24 | NUR ---
DR. Marcus HANNA DOING ROUNDS. NEW ORDER RECEIVED FOR LIANNE 1 VIEW Addendum: 12/08/19 at 0631 by Mart Pearce RN ALSO ORDERED UA AND CULTURE
--- NOTE | 2019-12-08 07:00 | NUR ---
RECEIVED PATIENT AWAKE RESTING IN BED NO S/S OF DISTRESS. BED LOW, WHEELS LOCKED, SIDE RAILS X2. CALL LIGHT IN REACH WILL CONTINUE TO MONITOR PATIENT.
[2019-12-08 07:32] LABS: ALANINE AMINOTRANSFERASE 24 IU/L (0-55); ALBUMIN 2.3 g/dL (3.5-5.0); ALBUMIN/GLOBULIN RATIO 0.7 (0.8-2.0); ALKALINE PHOSPHATASE 77 IU/L (40-150); ANION GAP 10.4 mmol/L (8-16); BLOOD UREA NITROGEN 5 mg/dL (7-26); BUN/CREATININE RATIO 8 (6-25); CALCIUM 8.1 mg/dL (8.4-10.2); CARBON DIOXIDE 26 mmol/L (22-29); CHLORIDE 105 mmol/L (98-107); CREATININE, SERUM 0.66 mg/dL (0.57-1.11); EST GLOMERULAR FILTRATION RATE > 60 ML/MIN (60-); GLUCOSE 122 mg/dL (74-118); POTASSIUM 4.4 mmol/L (3.5-5.1); SODIUM 137 mmol/L (136-145)
[2019-12-08] MEDS: IRON SUCROSE 100 MG in SODIUM CHLORIDE 0.9% 100 ML 100 ML IV SCH (07:48)
[2019-12-08] MEDS: FAMOTIDINE 20 MG/2 ML VIAL IV SCH (07:48)
--- NOTE | 2019-12-08 13:19 | Progress Note ---
DATE: 12/07/2019 Pain Management Progress Note REASON FOR FOLLOWUP: Pain management. Of note, the patient has living issue with pain control, still not well controlled depending on 2 mg of Dilaudid IV every four hour p.r.n. Had some nausea probably related to the pain medication. She is still on the G-tube to suction. OBJECTIVE: GENERAL: Still in pain, but not in acute distress. VITAL SIGNS: Afebrile. Affect is normocephalic. NECK: Supple. LUNGS: Air entry good bilaterally. HEART: Regular rate and rhythm. ABDOMEN: Soft. G-tube on suction. EXTREMITIES: No edema. ASSESSMENT AND PLAN: The patient with multiple issues with acute on chronic pain related to the small bowel obstruction secondary to the adhesion, status post left laparotomy with lysis of adhesion and ileoileal bypass with G-tube suction and now she is on total parenteral nutrition started. She has a postop ileus, resolving now. The pain is much better now. On iron infusion. History of lap band for morbid obesity in [place], has developed complication after that. Has some history of multiple back surgeries in the past. We will continue supportive care while she is inpatient. We will manage her pain through both IV and oral medication if she can tolerate. MD VICKI Kapadia/JOHN /[id number]
--- NOTE | 2019-12-08 14:45 | NUR ---
Visit made by the Spiritual Care Department Pastoral Visitor, Nik Perez. PV provided pastoral presence, hospitality, and supportive listening. Pastoral Visitor informed pt/family of the scope of [employer] and availability. MELISSA IBRAHIM [employer] Owner Spiritual Care Department O: [phone] Pager: [phone] ([phone] number calling from)
--- NOTE | 2019-12-08 18:44 | Progress Note ---
DATE: 12/08/2019 CONSULTANTS: 1. Dr. Delgadillo with Surgery. 2. Dr. Marshall with GI. 3. Dr. Christian with Pain Management. CHIEF COMPLAINT: Abdominal pain. SUBJECTIVE: Reports abdominal pain is not improved, still n.p.o. with TPN. She denies any nausea, vomiting, or chest pain. We will continue pain management. PHYSICAL EXAMINATION: VITAL SIGNS: Temperature 98.1, pulse is 79, respirations 18, blood pressure 107/55, pulse ox 97% on room air. GENERAL: Fatigue. HEENT: Normocephalic, atraumatic. NECK: Supple. CARDIOVASCULAR: Regular rate and rhythm. LUNGS: Clear to auscultation. ABDOMEN: Very tender to touch. G-tube to suction, draining greenish fluid. Surgical site intact. NEUROLOGIC: Alert, awake, and oriented x3. MUSCULOSKELETAL: Moves all extremities. SKIN: Dry. PSYCH: Calm. IMAGING DATA: Abdominal x-ray continued improvement of obstruction/ileus. IMPRESSION: 1. Severe abdominal pain due to ileus. Status post exploratory laparotomy with lysis of adhesion. G-tube to suction. Repeat KUB shows improvement of ileus/obstruction. Further recommendations per surgical team. Remains n.p.o. with TPN for nutrition. 2. Recurrent intractable nausea, vomiting. Nausea has now resolved, but remains n.p.o. GI has been consulted. 3. Elevated LFTs. Hepatitis panel is negative. LFTs were are within normal limits. 4. Chronic pain. Pain management has been consulted. Continue Dilaudid 2 mg q.4. 5. Iron deficiency anemia, was given iron transfusions. We will continue to monitor. 6. Mild protein malnutrition. We will continue TPN for short-term nutrition until p.o. 7. Deep venous thrombosis prophylaxis. SCDs due to anemia. PLAN: Continue with pain management as needed, we will continue with TPN and repeat KUB tomorrow. Dictated by BETI Mcrae Lillian Moe MD MY/MODL /[id number]
--- NOTE | 2019-12-08 18:57 | NUR ---
RECEIVED REPORT FROM NURSE CASEY. CALL LIGHT WITHIN REACH. PATIENT IN BED. FAMILY AT THE BEDSIDE. Addendum: 12/08/19 at 2347 by Reina Lee RN TIME WAS 1930
--- NOTE | 2019-12-08 19:36 | NUR ---
REPORT GIVEN TO CAROLINA STEWART.
[2019-12-08] MEDS: FENTANYL 25 MCG/HR PATCH TOP SCH (19:56)
[2019-12-08] MEDS: CENTRAL TPN FORMULA 1 BAG IV SCH (19:57)
--- NOTE | 2019-12-08 20:06 | NUR ---
CALLED DR. AG TO CONFIRM TPN DOSE AND TO GIVE THE PATIENT THE SAME THING WITH NO CHANGE. DR. AG SAID GIVE THE SAME DOSE AND NO CHANGES NEEDED.
--- NOTE | 2019-12-08 20:21 | Diagnostic Imaging Report ---
EXAM: ABDOMEN-1VIEW (KUB), DATE: 12/08/2019 INDICATION: Small bowel obstruction. Follow-up. COMPARISON: None FINDINGS: LINES/TUBES: Gastric lap band again observed. BOWEL PATTERN: No no interval change in mild gaseous distention of small bowel loops and entire colon with a moderate volume of stool within the right hemicolon. SOFT TISSUES: No abnormal calcifications. No mass effect. LUNG BASES: Left basilar atelectasis. BONES: No acute abnormality. Pelvis skin bronwyn. IMPRESSION: No interval change in findings suggestive of small bowel and colonic ileus. Signed by: Dr. Ortega Turcios M.D. on 12/08/2019 8:19 PM
[2019-12-08] MEDS: ONDANSETRON HCL INJ 2MG/ML 2ML 2 MG/ML VIAL IV PRN (20:26)
[2019-12-08 22:57] LABS: CLARITY,URINE SL CLOUDY (CLEAR); COLOR,URINE YELLOW (YELLOW)
[2019-12-08 22:59] LABS: BILIRUBIN,URINE NEGATIVE (NEGATIVE); KETONES,URINE NEGATIVE (NEGATIVE); LEUKOCYTE ESTERASE ,URINE TRACE (NEGATIVE); NITRITE,URINE NEGATIVE (NEGATIVE); PROTEIN,URINE DIPSTICK NEGATIVE (NEGATIVE); URINE UROBILINOGEN 0.2 mg/dL (0.2 - 1)
[2019-12-08] MEDS: LEVOFLOXACIN 500MG/D5W 100ML 100 ML IV SCH (23:07)
[2019-12-08 23:13] LABS: BACTERIA,URINE MANY /HPF; EPITHELIAL CELLS,URINE FEW /LPF; RBC,URINE 0-5 /HPF (0-5)
[2019-12-09] VITALS (7 sets, daily range): BP systolic 95–123; BP diastolic 50–62
[2019-12-09] MEDS: ONDANSETRON HCL INJ 2MG/ML 2ML 2 MG/ML VIAL IV PRN ×4 (00:50→23:35)
[2019-12-09] MEDS: HYDROMORPHONE 2MG/ML 2 MG/ML ML IV PRN ×5 (00:50→22:30)
[2019-12-09] MEDS ORDERED: PANTOPRAZOLE 40 MG 10ML VIAL IV STA (04:38)
[2019-12-09 06:31] LABS: BASOPHILS % 0.5 % (0.0-1.0); EOSINOPHILS # (AUTO) 0.2 (0.0-0.4); EOSINOPHILS % 2.8 % (0.0-6.0); HEMATOCRIT 29.6 % (34.2-44.1); HEMOGLOBIN 9.1 g/dL (12.0-16.0); LYMPHOCYTES % 32.7 % (18.0-39.1); MEAN CORPUSCULAR HEMOGLOBIN 25.1 pg (28-32); MEAN CORPUSCULAR HGB CONC 30.7 g/dL (31-35); MEAN CORPUSCULAR VOLUME 81.5 fL (81-99); MONOCYTES # (AUTO) 0.5 (0.2-0.8); MONOCYTES % 8.1 % (4.4-11.3); NEUTROPHILS # (AUTO) 3.4 (2.1-6.9); NEUTROPHILS % 55.4 % (38.7-80.0); PLATELET COUNT 319 x10e3/uL (140-360); RED BLOOD COUNT 3.63 x10e6/uL (3.6-5.1); RED CELL DISTRIBUTION WIDTH 15.8 % (11.7-14.4)
[2019-12-09 06:38] LABS: ALANINE AMINOTRANSFERASE 34 IU/L (0-55); ALBUMIN 2.4 g/dL (3.5-5.0); ALBUMIN/GLOBULIN RATIO 0.6 (0.8-2.0); ALKALINE PHOSPHATASE 89 IU/L (40-150); ANION GAP 12.1 mmol/L (8-16); BLOOD UREA NITROGEN 10 mg/dL (7-26); BUN/CREATININE RATIO 15 (6-25); CALCIUM 7.9 mg/dL (8.4-10.2); CARBON DIOXIDE 25 mmol/L (22-29); CHLORIDE 105 mmol/L (98-107); CREATININE, SERUM 0.66 mg/dL (0.57-1.11); EST GLOMERULAR FILTRATION RATE > 60 ML/MIN (60-); GLUCOSE 116 mg/dL (74-118); POTASSIUM 4.1 mmol/L (3.5-5.1); SODIUM 138 mmol/L (136-145)
--- NOTE | 2019-12-09 06:46 | Diagnostic Imaging Report ---
EXAM: ABDOMEN-1VIEW (KUB), DATE: 12/09/2019 INDICATION: Ileus. COMPARISON: None FINDINGS: LINES/TUBES: Gastric lap band unchanged in position. BOWEL PATTERN: Slight interval decrease in gaseous distention of small bowel loops and entire colon now with a small volume of gas within the rectum. SOFT TISSUES: No abnormal calcifications. No mass effect. LUNG BASES: Left basilar atelectasis. BONES: No acute abnormality. Pelvis surgical skin bronwyn again observed. IMPRESSION: Slight interval decrease in gaseous distention of small bowel loops and entire colon now with a small volume of gas within the rectum. Signed by: Dr. Ortega Turcios M.D. on 12/09/2019 6:44 AM
--- NOTE | 2019-12-09 07:00 | NUR ---
BEDSIDE SHIFT REPORT RECEIVED FROM FREDY STEWART. PT DENIES NEEDS AT THIS TIME.
--- NOTE | 2019-12-09 07:22 | NUR ---
GAVE BEDSIDE SHIFT REPORT TO ONCOMING NURSE. CALL LIGHT WITHIN REACH. PATIENT IN BED.BOYFRIEND AT THE BEDSIDE.
[2019-12-09] MEDS ORDERED: PANTOPRAZOLE 40 MG 10ML VIAL IV SCH (09:00)
[2019-12-09] MEDS: IRON SUCROSE 100 MG in SODIUM CHLORIDE 0.9% 100 ML 100 ML IV SCH (09:08)
[2019-12-09] MEDS: FAMOTIDINE 20 MG/2 ML VIAL IV SCH (09:08)
[2019-12-09] MEDS: PANTOPRAZOLE 40 MG 10ML VIAL IV SCH ×2 (09:08→17:31)
--- NOTE | 2019-12-09 15:41 | NUR ---
Nutrition Intervention Note RD Recommendation(s) for Physician: - Recommend changing Dextrose in TPN to 20%, to provide 240 gm dextrose/day, continue other components as ordered. - When feasible, ADAT to goal of GI Soft - Recommend Ensure Clear TID when diet advanced to Clear Liquids - When feasible recommend MVI with minerals once daily for adequacy Plan of Care: RD following, monitoring for tolerance and adequacy TPN rec's Nutrition reason for involvement: follow up RD Assessment 12/09: Please refer to paper chart for previous f/u 12/01 [facility] downtime documentation procedures. Pt seen for f/u today, remains NPO and continues on TPN. TPN infusing at 100 ml/hr. Pt reports continued nausea, denies additional GI distress. Pt with no questions or concerns at time of visit. Pt discussed during am rounds, KUB shows no obstruction, however pt with no BM or gas now pending soap suds enema. Will continue to monitor. (12/02/19) 24 YOF admitted for SBO, abdominal pain, and intractable N/V. Pt seen today per MST screen. Pt reports progressive N/V for over 6 months. Pt denies N/V currently, PEG to suction currently with dark greenish output. Pt can not recall UBW a yr ago, unable to assess wt status as pt recently delivered a baby- pt appears well nourished. Pt reports only tolerating gatorade over the last month. Per chart pt had lap band surgery in 2012, a 6 months ago, and a PEG placement in [place] last month. Pt discussed during am rounds, GI and surgery consulted. KUB this am- continues with obstruction. Pt with no questions at time of visit. Will continue to monitor. Principal Problems/Diagnoses: SBO, abdominal pain, intractable N/V PMH: lap band 2012, PEG placement October 2019 GI: LBM /- liquid, black stool (no BM x 1 week) + PEG to LIWS-140 ml dark greenish output 12/08 Skin: PEG site, no PU Labs: 12/09: Na 138, K 4.1, Cl 105, CO2 25, BUN 10, Cr 0.66, Gluc 116, AST 38 Meds: IV Fe, zofran, dilaudid, pepcid, protonix IVF: TPN at 100 ml/hr Ht: 64 in Wt: 211.4 lb BMI: 36.3 kg/m2 IBW: 120 lb Malnutrition Evaluation (12/02/19) The patient does not meet criteria for a specified degree of malnutrition at this time. Will re-evaluate at follow-up as appropriate. Energy intake: severe <50% of estimated energy requirements for >1 month Weight loss: ELYSSA Fat loss: none, ample skinfold thickness Muscle loss: none, shoulder round, clavicle not visible Supporting Evidence: Fluid accumulation: none Functional Status: not assessed Nutrition Prescription (Diet Order): NPO TPN: TV 2400 ml, Dextrose 30% 500 ml/L (360 g/day), AA10% 500 ml/L (120 g/day), standard lytes, MVI, trace. Lipids 25 g MWF. TPN providing average of 1811 kcal/day. Estimated Nutritional Needs: 2992-0427 calories/day (22-25 kcal/kg IBW) 82-109 g protein/day (1.5-2 g pro/kg IBW) Diet Adequacy: Exceeding calorie needs, exceeding protein needs, meeting fluid needs Diet Tolerance: tolerating TPN Diet Education Needs Assessment: Diet education not indicated, patient on temporary/transition diet. Nutrition Care Level: high Nutrition Diagnosis: Inadequate energy and protein intake related to SBO and chronic N/V as evidenced by not meeting needs for greateer than 1 month. Goal: Patient will meet 75-100% of estimated needs by follow up Progress: N/A Interventions: - PN- composition, rate, route, fiber modified diet, Commercial beverage, Recommended Modifications, Multivitamin/mineral supplement therapy, Collaboration with other providers Monitoring/Evaluation: -Total energy intake, Total protein intake, IVF, Prescription medication, Modified diet, Liquid supplement, Weight change Signed: Mandie Cartagena RD, LD, [facility]
--- NOTE | 2019-12-09 17:09 | Progress Note ---
DATE: 12/09/2019 CONSULTANTS: 1. Dr. Delgadillo with Surgery. 2. Dr. Marshall with GI. 3. Dr. Christian with Pain Management. CHIEF COMPLAINT: Abdominal pain. SUBJECTIVE: Reports abdominal pain has not improved, now has acid reflux. N.p.o. on TPN for nutrition. G-tube to wall suction. Still draining drainage clear fluid. She denies any nausea, vomiting, chest pain, or shortness of breath. PHYSICAL EXAMINATION: VITAL SIGNS: Temperature 97.2, pulse is 64, respirations 18, blood pressure 123/62, and pulse ox is 99% on room air. GENERAL: No acute distress. HEENT: Normocephalic and atraumatic. NECK: Supple. CARDIOVASCULAR: Regular rate and rhythm. LUNGS: Clear to auscultations. ABDOMEN: Very tender to touch. G-tube to suction, draining greenish clear fluid. NEUROLOGIC: Alert, awake, and oriented x3. MUSCULOSKELETAL: Moves all extremities. SKIN: Dry. PSYCH: Calm. LABORATORY DATA: WBC 6.18, hemoglobin 9.1, hematocrit 29.6, and platelet 319. Sodium 138, potassium 4.1, BUN is 10, creatinine is 0.66, and calcium 7.9. AST 38 and ALT 34. Total protein 6.1 and albumin 2.4. UA; slightly cloudy, but negative nitrites, trace leukocytes esterase and fewer white cells and bacteria. Urine culture negative so far. IMAGING: Abdomen x-ray, slight interval decrease in gaseous distention of small bowel loops and entire colon, now with a small volume gas within the rectum. IMPRESSION: 1. Severe abdominal pain due to ileus/obstruction. Status post exploratory laparotomy with lysis of adhesion. G-tube to suction. Repeat KUB if improving dilation and ileus. Remains n.p.o. with TPN for nutrition. Pain management as needed. 2. Nausea and vomiting with acid reflux. Started on Protonix IV. GI on the case. 3. Chronic pain. Pain management has been consulted. Continue Dilaudid 2 mg q.4 hours. 4. Iron deficiency anemia. Was given iron transfusions. Hemoglobin is now stable at 9. 5. Mild protein nutrition. We will continue with TPN, improving total protein. 6. Deep venous thrombosis prophylaxis. SCDs due to anemia. The patient is encouraged to ambulate as tolerated. PLAN: To continue TPN, pain management, and enema ordered per Surgical team to help with movement. Dictated by Kamilah Eaton, ANP MD NEDA Bettencourt/MODL /[id number]
--- NOTE | 2019-12-09 18:00 | NUR ---
THIS NURSE AND AMILLIA SQUEEGEER AND FORMER ADMINISTERED ENEMA TO PT. PT TOLERATED.
[2019-12-09] MEDS: CENTRAL TPN FORMULA 1 BAG IV SCH (20:55)
[2019-12-09] MEDS: LEVOFLOXACIN 500MG/D5W 100ML 100 ML IV SCH (21:00)
[2019-12-10] VITALS (9 sets, daily range): BP systolic 95–127; BP diastolic 51–60
[2019-12-10] MEDS: ONDANSETRON HCL INJ 2MG/ML 2ML 2 MG/ML VIAL IV PRN ×2 (02:50→16:57)
[2019-12-10] MEDS: HYDROMORPHONE 2MG/ML 2 MG/ML ML IV PRN (02:52)
[2019-12-10] MEDS: SODIUM CHLORIDE FLUSH 10 ML SYR INJ PRN (05:21)
--- NOTE | 2019-12-10 07:00 | NUR ---
BEDSIDE SHIFT REPORT RECEIVED FROM CAROLINA STEWART. PT DENIES NEEDS AT THIS TIME.
--- NOTE | 2019-12-10 07:19 | NUR ---
GAVE BEDSIDE SHIFT REPORT TO ONCOMING NURSE. CALL LIGHT WITHIN REACH. PATIENT IN BED. PATIENT IS A&OX3. BOYFRIEND AT THE BEDSIDE.
--- NOTE | 2019-12-10 08:56 | Diagnostic Imaging Report ---
Abdomen, one view on 2 radiographs Clinical indication: Bowel obstruction Comparison: 12/09/2019 Findings: There is continued gaseous distention of the entire colon which is grossly unchanged when compared to prior examination. The small amount of gas is seen distally in the rectum. There has been a slight interval decrease in the gaseous distention of the loops of small bowel. Lap band device is in place. Signed by: Miguelito Robbins MD on 12/10/2019 8:53 AM
[2019-12-10] MEDS ORDERED: BISACODYL 10 MG SUPP PR PRN (09:30)
[2019-12-10] MEDS: FAMOTIDINE 20 MG/2 ML VIAL IV SCH (09:32)
[2019-12-10] MEDS: IRON SUCROSE 100 MG in SODIUM CHLORIDE 0.9% 100 ML 100 ML IV SCH (09:32)
[2019-12-10] MEDS: PANTOPRAZOLE 40 MG 10ML VIAL IV SCH ×2 (09:32→17:17)
[2019-12-10] MEDS: HYDROMORPHONE 1MG/1ML INJ IV PRN ×3 (09:57→22:32)
--- NOTE | 2019-12-10 11:03 | Progress Note ---
DATE: 12/10/2019 CONSULTANTS: 1. Dr. Delgadillo with Surgery. 2. Dr. Marshall with GI. 3. Dr. Christian with Pain Management. CHIEF COMPLAINT: Abdominal pain. SUBJECTIVE: The patient is still with complaints of abdominal pain, continues to be n.p.o. with G-tube to wall suction. She denies any nausea, vomiting, chest pain, shortness of breath. She is on TPN for nutrition. PHYSICAL EXAMINATION: VITAL SIGNS: Temperature 97.3, pulse is 62, respirations 16, blood pressure 99/51, pulse ox is 98% on room air. GENERAL: No acute distress. HEENT: Normocephalic, atraumatic. NECK: Supple. CARDIOVASCULAR: Regular rate and rhythm. LUNGS: Clear to auscultation. ABDOMEN: Very tender, soft. G-tube to wall suction, still with significant drainage. NEUROLOGIC: Alert, awake, and oriented x3. MUSCULOSKELETAL: Moves all extremities. SKIN: Dry. PSYCH: Calm. IMAGING DATA: KUB shows continued gaseous distention of the entire colon, which is grossly unchanged when compared to the prior examination. IMPRESSION: 1. Severe abdominal pain due to ileus/obstruction. Status post exploratory laparotomy with lysis of adhesion. G-tube to suction, draining significant amount. KUB this morning still with some dilation of the colon. Continue to keep n.p.o. with TPN for nutrition. Pain management as needed. 2. Acid reflux. Continue PPI. GI on the case. 3. Chronic pain. Pain management has been consulted. Continue pain management as needed. 4. Iron deficiency anemia. Improved with status post iron transfusions. 5. Mild protein malnutrition. Continue TPN. 6. Hypotension. We will continue to monitor closely. 7. Deep vein thrombosis prophylaxis. SCDs due to anemia. Encourage to ambulate as tolerated. PLAN: Continue pain management, n.p.o. until cleared by surgical team. Continue TPN. Dictated by BETI Mcrae Lillian Moe MD MY/MODL /[id number] Seen and examined, discussed with Drs. Delgadillo/Gino, will do a po trial. Agree with the findings and plan as documented by BETI Eaton. MTDD
--- NOTE | 2019-12-10 13:04 | NUR ---
ORDERS FOR [facility] EVAL CHOICE LETTER SIGNED FOR DAVIN LAURA BY PT MOT INITIATED AND PLACED ON CHART FITO WITH DAVIN LAURA NOTIFIED OF CONSULT
--- NOTE | 2019-12-10 19:00 | NUR ---
RECEIVED REPORT FROM DAY RN. PT IS ALERT AND ORIENTED X3. FAMILY AT BEDSIDE. PT IN SEMI FOWLERS POSITION. RESPIRATIONS EVEN AND UNLABORED.PEG TUBE TO SUCTION. TRIPLE LUMEN PICC IN LEFT ARM. TL SITE INTACT. CALL LIGHT WITHIN REACH. BED IN LOW POSITION.
--- NOTE | 2019-12-10 20:31 | NUR ---
FOR THE PAST 2 DAYS THIS NURSE HAS NOTICED WELL THE AIR TOOL OPERATOR ESTHER THE THERE APPEARS TO BE RESIDUAL IN THE SUCTION TUBING THAT RESEMBLED THE CHEETOS AT BEDSIDE. PT DENIES EATING.
--- NOTE | 2019-12-10 20:35 | NUR ---
PT ENCOURAGED TO WALK TODAY BUT REFUSED TO WORK WITH PT TWICE. NOT ABLE TO GIVE PAIN MEDICATION AT TIMES REQUESTED BECAUSE OF LOW B/P. EXPLAINED TO THE PT THAT AMBULATING WOULD HELP. PT HAS ALSO REFUSED HELP IN SHOWERING EARLIER IN THE DAY TO SLEEP WITH SIGNIFICANT OTHER SLEEPING AT BEDSIDE. PT AND FAMILY UPSET THAT HELP WAS NOT MORE READILY AVAILABLE TOWARD THE END OF THE SHIFT.
[2019-12-10] MEDS: CENTRAL TPN FORMULA 1 BAG IV SCH (21:41)
--- NOTE | 2019-12-10 22:05 | NUR ---
PT REQUESTING PAIN MED- B/P 90/[address] PAYAN NOTIFIED BY PHONE. NEW ORDER RECEIVED TO HOLD DILAUDID IF B/P LESS THAN 95 SYSTOLIC.
[2019-12-11] VITALS (8 sets, daily range): BP systolic 96–114; BP diastolic 53–60
[2019-12-11] MEDS: HYDROMORPHONE 1MG/1ML INJ IV PRN ×3 (03:39→17:31)
[2019-12-11] MEDS: ONDANSETRON HCL INJ 2MG/ML 2ML 2 MG/ML VIAL IV PRN ×2 (06:42→17:31)
--- NOTE | 2019-12-11 07:00 | NUR ---
Received patient lying in bed with eyes open. TPN is currently infusing. Respiration even and unlabored without SOB.
[2019-12-11] MEDS: IRON SUCROSE 100 MG in SODIUM CHLORIDE 0.9% 100 ML 100 ML IV SCH (08:56)
[2019-12-11] MEDS: PANTOPRAZOLE 40 MG 10ML VIAL IV SCH ×2 (08:56→17:31)
[2019-12-11] MEDS: HYDROCODONE/APAP 10MG-325MG TAB PO PRN ×2 (12:22→22:25)
--- NOTE | 2019-12-11 14:34 | NUR ---
Spoke with Dr. Moe. Stated that no change for TPN order.
--- NOTE | 2019-12-11 18:10 | Diagnostic Imaging Report ---
EXAM: ABDOMEN-1VIEW (KUB), DATE: 12/11/2019 3:28 PM INDICATION: Small bowel obstruction. Abdominal pain. COMPARISON: None FINDINGS: LINES/TUBES: Gastric lap band unchanged in position. BOWEL PATTERN: Further interval decrease in gaseous distention of small bowel loops and colon. SOFT TISSUES: No abnormal calcifications. No mass effect. LUNG BASES: Left basilar atelectasis. BONES: No acute abnormality. Pelvis surgical skin bronwyn again observed. IMPRESSION: Further interval decrease in gaseous distention of small bowel loops and colon. Signed by: Dr. Ortega Turcios M.D. on 12/11/2019 6:07 PM
--- NOTE | 2019-12-11 19:12 | NUR ---
Report given to audit tech. Respiration even and unlabored without SOB. Call light in reach. Family at bedside.
[2019-12-11] MEDS: FENTANYL 25 MCG/HR PATCH TOP SCH (20:14)
--- NOTE | 2019-12-11 20:15 | NUR ---
PATIENT RESTING IN BED IN STABLE CONDITION, NO SIGNS OF DISTRESS NOTED. FAMILY MEMBERS ARE AT BEDSIDE AND PATIENT VOICES PAIN AT A LEVEL OF 9 AND WILL BE MEDICATED ORDERED. TPN IS INFUSING AT ORDERED RATE. BED IS IN LOWEST POSITION, SIDE RAILS ARE UP, CALL LIGHT IS WITHIN EASY REACH, WILL CONTINUE TO MONITOR.
[2019-12-11] MEDS: CENTRAL TPN FORMULA 1 BAG IV SCH (22:00)
--- NOTE | 2019-12-11 22:10 | NUR ---
TPN RESTARTED AND CHECKED WITH NURSE, NOW INFUSING AT ORDERED RATE.
[2019-12-12] VITALS (9 sets, daily range): BP systolic 94–121; BP diastolic 51–67
--- NOTE | 2019-12-12 00:30 | NUR ---
DR. HANNA HAD ORDERED AMYLASE AND LIPASE ORDERS FOR THE PATIENT FOR RIGHT NOW. AFTER MANY ATTEMPTS WITH ANOTHER NURSE IT WAS UNSUCCESSFUL DUE TO PATIENT HAVING POOR VENOUS ACCESS AND PICC LINE NOT DRAWING BLOOD. DR. HANNA WAS NOTIFIED AND ORDERED TO HAVE LABS DONE IN THE MORNING.
[2019-12-12] MEDS: HYDROMORPHONE 1MG/1ML INJ IV PRN ×3 (00:36→20:40)
[2019-12-12] MEDS: ONDANSETRON HCL INJ 2MG/ML 2ML 2 MG/ML VIAL IV PRN ×3 (00:37→20:40)
[2019-12-12] MEDS: HYDROCODONE/APAP 10MG-325MG TAB PO PRN ×2 (05:57→14:46)
[2019-12-12 06:49] LABS: AMYLASE 44 U/L (25-125); LIPASE 133 U/L (8-78)
--- NOTE | 2019-12-12 07:05 | NUR ---
Received patient lying in bed with eyes open. Respiration even and unlabored without SOB. Family member at bedside. Call light in reach. TPN is currently infusing at this time.
[2019-12-12] MEDS: IRON SUCROSE 100 MG in SODIUM CHLORIDE 0.9% 100 ML 100 ML IV SCH (09:40)
[2019-12-12] MEDS: PANTOPRAZOLE 40 MG 10ML VIAL IV SCH ×2 (09:40→20:40)
[2019-12-12] MEDS ORDERED: CENTRAL TPN FORMULA 1 BAG IV SCH (23:41)
[2019-12-13] VITALS: BP 94/51
[2019-12-13] MEDS: HYDROCODONE/APAP 10MG-325MG TAB PO PRN ×2 (00:33→10:18)
[2019-12-13 04:00] VITALS: BP 103/58
[2019-12-13] MEDS: METOCLOPRAMIDE HCL 10 MG/2ML VIAL IV SCH ×2 (06:31→14:04)
[2019-12-13] MEDS: ONDANSETRON HCL INJ 2MG/ML 2ML 2 MG/ML VIAL IV PRN (06:32)
[2019-12-13] MEDS: HYDROMORPHONE 1MG/1ML INJ IV PRN ×2 (06:32→14:03)
[2019-12-13 07:06] LABS: BASOPHILS % 0.4 % (0.0-1.0); EOSINOPHILS # (AUTO) 0.2 (0.0-0.4); EOSINOPHILS % 2.6 % (0.0-6.0); HEMATOCRIT 30.1 % (34.2-44.1); HEMOGLOBIN 9.4 g/dL (12.0-16.0); LYMPHOCYTES # (AUTO) 2.2 (1.0-3.2); LYMPHOCYTES % 30.2 % (18.0-39.1); MEAN CORPUSCULAR HEMOGLOBIN 26.2 pg (28-32); MEAN CORPUSCULAR HGB CONC 31.2 g/dL (31-35); MEAN CORPUSCULAR VOLUME 83.8 fL (81-99); MONOCYTES # (AUTO) 0.5 (0.2-0.8); NEUTROPHILS # (AUTO) 4.4 (2.1-6.9); NEUTROPHILS % 59.4 % (38.7-80.0); PLATELET COUNT 287 x10e3/uL (140-360); RED BLOOD COUNT 3.59 x10e6/uL (3.6-5.1); RED CELL DISTRIBUTION WIDTH 16.2 % (11.7-14.4)
--- NOTE | 2019-12-13 07:10 | NUR ---
Received patient lying in bed with eyes open. Respiration even and unlabored without SOB. Call light in reach.
[2019-12-13 07:51] VITALS: BP 93/52
[2019-12-13 08:04] VITALS: BP 93/52
--- NOTE | 2019-12-13 08:40 | Diagnostic Imaging Report ---
Exam: Abdominal film Clinical History: Small bowel obstruction Comparison: 12/11/2019 DISCUSSION: Gastric band apparatus and percutaneous gastrostomy catheter are unchanged in position. Thoracic spinal fusion hardware also unchanged. The bowel gas pattern shows scattered mildly distended loops of small bowel with gas and fecal material throughout the colon. Low transverse abdominal surgical bronwyn are unchanged area no puneet pneumoperitoneum. Regional skeletal structures are intact. IMPRESSION: Stable bowel gas pattern with mild distention of small bowel loops and colon. Signed by: Dr. Asad Mccullough M.D. on 12/13/2019 8:38 AM
[2019-12-13] MEDS: PANTOPRAZOLE 40 MG 10ML VIAL IV SCH (10:16)
[2019-12-13] MEDS: IRON SUCROSE 100 MG in SODIUM CHLORIDE 0.9% 100 ML 100 ML IV SCH (10:16)
[2019-12-13 12:09] VITALS: BP 96/54
--- NOTE | 2019-12-13 12:35 | NUR ---
Report given to nurse Myrick at [facility]
--- NOTE | 2019-12-13 12:50 | NUR ---
AUTH TODAY FOR DAVIN QUINONEZ LAURA MOT COMPLETED AND ON PACKET PER [facility] MUST USE IN NETWORK INSURANCE-[facility] D/W HOUSE SUP DIRK AND NOTIFIED [facility] IS IN NETWORK FOR PT
--- NOTE | 2019-12-13 15:40 | NUR ---
Patient is transported via EMS with all personal belongings taken by family members. Left upper PICC intact, and TPN is infusing. Respiration even and unlabored without SOB.
--- NOTE | 2019-12-14 04:11 | Discharge Summary ---
FINAL DIAGNOSIS: Small-bowel obstruction. SECONDARY DIAGNOSIS: Chronic pain syndrome. CONSULTANTS: 1. Dr. Christian, Pain Management. 2. Dr. Delgadillo, Surgeon. 3. Dr. Marshall, GI. PROCEDURE/STUDIES PERFORMED: 1. Postop day #10 for ileoileal bypass surgery. 2. CT of the abdomen and pelvis. 3. PICC line insertion. HISTORY: Per H and P. HOSPITAL COURSE: The patient was admitted, was found to have small-bowel obstruction on the CT scan. Ileoileal bypass surgery was done. However, the patient continued to not tolerating p.o. Initially, her PEG was hooked up to suction. Subsequently, this was discontinued. PICC line was placed. TPN was started. Serial KUB was done, it is slowly getting better, but very slowly. The patient is still on IV Dilaudid and also fentanyl patch. The patient is still not tolerating p.o. She did receive iron infusion for iron deficiency anemia. At this time, patient will be discharged to [facility] in [place]. The patient was seen and examined today. It took 32 minutes total to discharge this patient. CONDITION ON DISCHARGE: Improved. DISCHARGE MEDICATIONS: Please see medication reconciliation form. Kieraching MD DEMOND Hinojosa/JOHN /[id number]
--- NOTE | 2019-12-24 19:38 | Operative Report ---
DATE OF PROCEDURE: 12/03/2019 SURGEON: Asad Delgadillo MD PREOPERATIVE DIAGNOSIS: Intestine obstruction. POSTOPERATIVE DIAGNOSIS: Intestine obstruction. OPERATIVE PROCEDURE: Intestinal bypass. ANESTHESIA: General. INDICATION FOR SURGERY: This patient is a 24-year-old female with chronic abdominal pain with CT scan show evidence of distal small bowel obstruction. The patient has consented for exploratory laparotomy and possible bowel resection, possible intestinal bypass. PROCEDURE FINDING: Suture in the distal small bowel/ileum. DESCRIPTION OF PROCEDURE: The patient was brought into OR intubated. The abdomen was prepped with alcohol and draped in sterile fashion. A low-transverse incision was made through the prior Pfannenstiel incision, extending through the skin and subcutaneous tissue. The fascia was incised in the direction of the skin incisions transversely, underlying rectus muscles split, entering the peritoneal cavity. We then proceeded to perform exploration of the bowel, identifying the cecum first and ileocecal bowel. We then followed the bowel retrograde approximately 50 cm from the ileocecal valve. We encountered an area of strictured with narrowing of the ileum with proximal bowel dilatation to 4 to 5 cm. The bowel distally was decompressed. At this point, we proceeded to perform an intestinal bypass by placing the proximal and distal bowel [id number] and enterotomy was made in each limb of the ileum and the SHANTEL stapler was inserted and created a stapled anastomosis. The enterotomy was closed with a TL60 instrument. Operative field was then irrigated. Hemostasis was achieved. We then proceeded to close the wound by approximating the peritoneum with a running 2-0 Vicryl. The fascia was closed with running #0 PDS. Skin was closed with bronwyn. The patient tolerated the procedure well, was extubated, and transported to the recovery room. BLOOD LOSS: 10 mL. Asad Delgadillo MD DNL/MODL /[id number]
== END 2019-12-13 11:54 | DRG 330 ==
LOC: FSED 15:34 → ERHOLD 17:32 → MED/SURG 19:25
PROVIDERS: ADMIT Internal Medicine; ATTEND Internal Medicine
PROC: 0DNB0ZZ Release Ileum, Open Approach (ICD-10-PCS; 2019-12-03)
PROC: 0D180Z8 Bypass Small Intestine to Small Intestine, Open Approach (ICD-10-PCS; principal; 2019-12-03 08:30)
PROC: 02HV33Z Insertion of Infusion Device into Superior Vena Cava, Percutaneous Approach (ICD-10-PCS; 2019-12-05)
PROC: 3E0436Z Introduction of Nutritional Substance into Central Vein, Percutaneous Approach (ICD-10-PCS; 2019-12-06)
DX: K56.51 Intestinal adhesions [bands], with partial obstruction (principal); E87.1 Hypo-osmolality and hyponatremia; E44.1 Mild protein-calorie malnutrition; G90.50 Complex regional pain syndrome I, unspecified; G89.4 Chronic pain syndrome; R79.89 Other specified abnormal findings of blood chemistry; K56.7 Ileus, unspecified; D50.9 Iron deficiency anemia, unspecified; Z98.84 Bariatric surgery status; E66.01 Morbid (severe) obesity due to excess calories; Z68.36 Body mass index [BMI] 36.0-36.9, adult; K21.9 Gastro-esophageal reflux disease without esophagitis; I95.9 Hypotension, unspecified; Z93.1 Gastrostomy status; K31.84 Gastroparesis; Z88.1 Allergy status to other antibiotic agents; Z88.2 Allergy status to sulfonamides
CPT/HCPCS: 36415; 36569; 71045; 74018; 74177; 80048; 80053; 80076; 81001; 81025; 82150; 82607; 82728; 82746; 82948; 83540; 83690; 83735; 84100; 84134; 84466; 84478; 85025; 85045; 85651; 86140; 86256; 86671; 87040; 87086; 96365; 96366; 97139; 99284; J0694; J1100; J1170; J1756; J1885; J1956; J2001; J2250; J2270; J2405; J2550; J2765; J3010; J7030; J7050; Q9967

== ENCOUNTER 2019-12-29 19:43 | Emergency (ER) | payer OTHER ==
[~2019-12-29] VITALS: Ht 162.6 cm; Wt 96.2 kg
[~2019-12-29 19:43] MED LIST: ULTRAM50 MG PO
[2019-12-29 20:41] LABS: BASOPHILS % 0.3 % (0.0-1.0); EOSINOPHILS # (AUTO) 0.2 (0.0-0.4); EOSINOPHILS % 3.3 % (0.0-6.0); HEMATOCRIT 34.3 % (34.2-44.1); HEMOGLOBIN 10.8 g/dL (12.0-16.0); LYMPHOCYTES # (AUTO) 2.3 (1.0-3.2); LYMPHOCYTES % 34.2 % (18.0-39.1); MEAN CORPUSCULAR HEMOGLOBIN 26.9 pg (28-32); MEAN CORPUSCULAR HGB CONC 31.5 g/dL (31-35); MEAN CORPUSCULAR VOLUME 85.5 fL (81-99); MONOCYTES # (AUTO) 0.4 (0.2-0.8); MONOCYTES % 5.2 % (4.4-11.3); NEUTROPHILS # (AUTO) 3.8 (2.1-6.9); NEUTROPHILS % 56.7 % (38.7-80.0); PLATELET COUNT 254 x10e3/uL (140-360); RED BLOOD COUNT 4.01 x10e6/uL (3.6-5.1); RED CELL DISTRIBUTION WIDTH 16.4 % (11.7-14.4)
[2019-12-29 20:46] LABS: INR 1.03; PROTHROMBIN TIME 14.1 seconds (11.9-14.5)
[2019-12-29 20:47] LABS: PARTIAL THROMBOPLASTIN TIME 29.2 seconds (23.8-35.5)
[2019-12-29 20:56] LABS: ALANINE AMINOTRANSFERASE 33 IU/L (0-55); ALBUMIN 3.6 g/dL (3.5-5.0); ALBUMIN/GLOBULIN RATIO 0.9 (0.8-2.0); ALKALINE PHOSPHATASE 89 IU/L (40-150); ANION GAP 9.5 mmol/L (8-16); BLOOD UREA NITROGEN 10 mg/dL (7-26); BUN/CREATININE RATIO 13 (6-25); CALCIUM 9.2 mg/dL (8.4-10.2); CARBON DIOXIDE 29 mmol/L (22-29); CHLORIDE 106 mmol/L (98-107); CREATININE, SERUM 0.79 mg/dL (0.57-1.11); EST GLOMERULAR FILTRATION RATE > 60 ML/MIN (60-); GLUCOSE 82 mg/dL (74-118); POTASSIUM 3.5 mmol/L (3.5-5.1); SODIUM 141 mmol/L (136-145)
[2019-12-29] MEDS ORDERED: KETOROLAC TROMETHAMINE 30 MG/ML VIAL IV STA (22:13)
[2019-12-29 22:39] LABS: CLARITY,URINE CLOUDY (CLEAR); COLOR,URINE YELLOW (YELLOW)
[2019-12-29 22:40] LABS: BILIRUBIN,URINE LARGE (NEGATIVE); KETONES,URINE NEGATIVE (NEGATIVE); LEUKOCYTE ESTERASE ,URINE 1+ (NEGATIVE); NITRITE,URINE NEGATIVE (NEGATIVE); PROTEIN,URINE DIPSTICK TRACE (NEGATIVE); URINE UROBILINOGEN 0.2 mg/dL (0.2 - 1)
[2019-12-29 22:41] LABS: PREGNANCY TEST, URINE NEGATIVE (NEGATIVE)
[2019-12-29 22:56] LABS: BACTERIA,URINE MANY /HPF; EPITHELIAL CELLS,URINE MANY /LPF; MUCUS,URINE MANY (RARE); WBC,URINE (MAN) 21-50 /HPF (0-5)
[2019-12-29] MEDS ORDERED: IOPAMIDOL 370 MG/ML 200 ML INFUS..BTL INJ ONE (23:00)
[2019-12-29] MEDS ORDERED: SODIUM CHLORIDE 0.9% 50ML 50 ML ONE (23:00)
--- NOTE | 2019-12-29 23:59 | Diagnostic Imaging Report ---
EXAMINATION: CT of the abdomen and pelvis with contrast. TECHNIQUE: Spiral CT images of the abdomen and pelvis were performed from the lung bases to the lesser trochanters after the intravenous administration of 100 cc of Isovue 370. Coronal and sagittal reformatted images were obtained. COMPARISON: 11/30/2019 CLINICAL HISTORY:Abdominal pain, lateral and, gastrostomy tube, no bowel movements x1 week DISCUSSION: ABDOMEN/PELVIS: LOWER THORAX:Lung bases are unremarkable. No pleural effusion. HEPATOBILIARY: No focal hepatic lesions. No intra-or extrahepatic biliary ductal dilation. The gallbladder is unremarkable. SPLEEN: No splenomegaly or focal splenic lesion. PANCREAS: No focal masses or ductal dilatation. ADRENALS: No adrenal nodules. KIDNEYS/URETERS: No hydronephrosis, calculi, or solid or cystic mass lesions. PELVIC ORGANS/BLADDER: The urinary bladder is unremarkable. PERITONEUM/RETROPERITONEUM: Small volume pelvic ascites, decreased compared to prior. No pneumoperitoneum. LYMPH NODES: No pelvic sidewall, retroperitoneal, or mesenteric lymphadenopathy. VESSELS: Abdominal aorta, major branch vessels, and iliac arterial systems are patent. Portal vein, splenic vein, and central superior mesenteric vein are patent. GI TRACT: Interval low transverse abdominal incision and repair of previously described small bowel obstruction. Radiopaque suture material along a loop of small bowel in the right mid abdomen. Gastrostomy catheter retention balloon lies at the pylorus. No upstream gastric dilatation. Gastric band apparatus encircles the proximal stomach, unchanged in position. [place] rests in the midline subcutaneous fat. Large bowel shows no distention or wall thickening. Appendix is poorly visualized. No small bowel dilatation to suggest residual or recurrent obstruction. BONES AND SOFT TISSUE: Thoracic spine fusion hardware partially visualized. No osseous destructive lesions. Postsurgical changes of the low anterior abdominal wall with overlying skin bronwyn. No subcutaneous gas or fluid collection. IMPRESSION: Interval operative repair of previously noted small bowel obstruction with radiopaque suture material along a loop of small bowel in the right mid abdomen. No residual small bowel dilatation. Postoperative changes of the low anterior abdominal wall without subcutaneous fluid collection. Retention balloon for percutaneous gastrostomy catheter lies at the pylorus. Though there is no proximal gastric dilatation to suggest outlet obstruction at this time, retraction of the catheter into the gastric body should be considered. Stable position of gastric band apparatus. Signed by: Dr. Asad Mccullough M.D. on 12/29/2019 11:56 PM
== END 2019-12-30 01:32 | disposition home or self-care (01) ==
LOC: ER 19:43
DX: R10.84 Generalized abdominal pain (principal); Z98.84 Bariatric surgery status; Z93.1 Gastrostomy status
CPT/HCPCS: 36415; 74177; 80053; 81001; 81025; 85025; 85610; 85730; 99283; J1885; Q9967

== ENCOUNTER 2020-01-03 18:02 | Emergency (ER) | payer OTHER ==
[~2020-01-03] VITALS: Ht 162.6 cm; Wt 95.7 kg
[2020-01-03] MEDS ORDERED: ONDANSETRON HCL INJ 2MG/ML 2ML 2 MG/ML VIAL IV STA (18:39)
[2020-01-03] MEDS ORDERED: SODIUM CHLORIDE 0.9% 1000ML 1,000 ML IV STA (18:41)
[2020-01-03] MEDS ORDERED: MORPHINE SULFATE INJ 4 MG/ML INJ 1ML IV ONE (18:45)
[2020-01-03] MEDS ORDERED: SODIUM CHLORIDE 0.9% 1000ML 1,000 ML ONE (19:04)
[2020-01-03] MEDS ORDERED: MORPHINE SULFATE INJ 4 MG/ML INJ 1ML ONE (19:04)
--- NOTE | 2020-01-03 20:25 | Diagnostic Imaging Report ---
EXAMINATION: CT of the abdomen and pelvis. INDICATION: Abdominal pain TECHNIQUE: Spiral CT images of the abdomen and pelvis were performed from the lung bases to the lesser trochanters without administration of IV contrast. Coronal and sagittal reformatted images were obtained. COMPARISON: CT abdomen pelvis dated 12/29/2019 FINDINGS: LOWER THORAX:Lung bases are unremarkable. No pleural effusion. HEPATOBILIARY: No focal hepatic lesions. No intra-or extrahepatic biliary ductal dilation. The gallbladder is unremarkable. SPLEEN: No splenomegaly or focal splenic lesion. PANCREAS: No focal masses or ductal dilatation. ADRENALS: No adrenal nodules. KIDNEYS/URETERS: No hydronephrosis, calculi, or solid or cystic mass lesions. PELVIC ORGANS/BLADDER: The urinary bladder is unremarkable. PERITONEUM/RETROPERITONEUM: Small volume pelvic free fluid, unchanged. No pneumoperitoneum. LYMPH NODES: No lymphadenopathy. VESSELS: Unremarkable. GI TRACT: Gastrostomy tube is unchanged. Retention balloon for percutaneous gastrostomy catheter lies at the pylorus, similar to prior position. Status post bowel surgery and anastomosis seen in the small bowel left lower quadrant. There is no abnormal distention or obstruction. BONES AND SOFT TISSUE: Thoracic spine fusion hardware partially visualized. No hardware failure or loosening. Postsurgical changes of the low anterior abdominal wall with overlying skin bronwyn. IMPRESSION: No acute finding in the abdomen or pelvis. Again noted retention balloon for percutaneous gastrostomy catheter lies at the pylorus similar to prior exam and adjustment is recommended. Signed by: Bjorn Mabry MD on 01/03/2020 8:23 PM
[2020-01-03] MEDS ORDERED: MACROBID 100 M100 MG PEG (20:36)
[2020-01-03 21:07] VITALS: BP 113/65
--- NOTE | 2020-01-03 21:57 | NUR ---
explained to patient that she needed to follow up with a gastro MD to have her peg possible adjusted, pt instructed that she is able to use her peg for feedings as instructed by her pcp. pt verbalized understanding. pt also given CT disk of cat scan.
== END 2020-01-03 21:05 | disposition home or self-care (01) ==
LOC: FSED 18:02
DX: R10.13 Epigastric pain (principal); R11.2 Nausea with vomiting, unspecified
CPT/HCPCS: 74176; 80048; 80076; 81003; 81025; 85025; 99284; J2270; J2405; J7030

== ENCOUNTER 2020-03-01 13:08 | Inpatient (IN) | payer OTHER ==
[~2020-03-01] VITALS: Ht 162.6 cm; Wt 97.1 kg
[~2020-03-01 13:08] MED LIST changes: +MACROBID 100 M100 MG PEG
[2020-03-01] MEDS ORDERED: ONDANSETRON HCL INJ 2MG/ML 2ML 2 MG/ML VIAL IV STA (13:30)
[2020-03-01] MEDS ORDERED: MORPHINE SULFATE INJ 4 MG/ML INJ 1ML IV STA (13:30)
[2020-03-01] MEDS ORDERED: DIATRIZOATE MEGL/DIATRIZOA SOD 30 ML BTL PO ONE ×2 (13:37→13:50)
[2020-03-01] MEDS ORDERED: SODIUM CHLORIDE 0.9% 1000ML 1,000 ML ONE ×2 (13:38→15:15)
[2020-03-01] MEDS ORDERED: MORPHINE SULFATE INJ 4 MG/ML INJ 1ML ONE ×2 (13:45→15:15)
[2020-03-01] MEDS ORDERED: SODIUM CHLORIDE 0.9% 1000ML 1,000 ML IV SCH (14:15)
[2020-03-01] MEDS ORDERED: DICYCLOMINE HCL 20 MG/2 ML VIAL IM ONE ×2 (14:30→15:15)
[2020-03-01] MEDS ORDERED: IOPAMIDOL 370 MG/ML 200 ML INFUS..BTL INJ ONE (14:42)
[2020-03-01] MEDS ORDERED: SODIUM CHLORIDE 0.9% 50ML 50 ML ONE (15:06)
[2020-03-01] MEDS ORDERED: PIPER-TAZ 3.375 GM 50 ML ONE (15:15)
[2020-03-01] MEDS: MORPHINE SULFATE 2 MG/ML SYR 1ML IV PRN ×3 (15:30→23:38)
[2020-03-01] MEDS: PIPER-TAZ 3.375 GM 50 ML IV SCH ×2 (15:30→18:51)
[2020-03-01 15:56] LABS: LIPASE 5670 U/L (8-78)
--- NOTE | 2020-03-01 16:10 | Diagnostic Imaging Report ---
EXAMINATION: CT of the abdomen and pelvis with contrast. TECHNIQUE: Spiral CT images of the abdomen and pelvis were performed from the lung bases to the lesser trochanters after the intravenous administration of 100 cc of Isovue 370. Coronal and sagittal reformatted images were obtained. COMPARISON: CT abdomen and pelvis without contrast 01/03/2020 CLINICAL HISTORY:Abdominal pain DISCUSSION: ABDOMEN/PELVIS: LOWER THORAX:Lung bases are unremarkable. No pleural effusion. HEPATOBILIARY: No focal hepatic lesions. No intra-or extrahepatic biliary ductal dilation. The gallbladder is distended though not hydropic. Mild inflammation along the inferior aspect of the gallbladder (series 2 image 36). No radiopaque calculi. SPLEEN: No splenomegaly or focal splenic lesion. PANCREAS: No focal masses or ductal dilatation. ADRENALS: No adrenal nodules. KIDNEYS/URETERS: No hydronephrosis, calculi, or solid or cystic mass lesions. PELVIC ORGANS/BLADDER: Urinary bladder is unremarkable. Uterus is neutral in position and appears normal. No adnexal mass. PERITONEUM/RETROPERITONEUM: Trace low-attenuation ascites in the pelvis (10-15 Hounsfield units). No pneumoperitoneum. LYMPH NODES: No pelvic sidewall, retroperitoneal, or mesenteric lymphadenopathy. VESSELS: Abdominal aorta, major branch vessels, and iliac arterial systems are patent. Portal vein, splenic vein, and central superior mesenteric vein are patent. GI TRACT: Laparoscopic gastric band apparatus unchanged in position. Gastrostomy catheter with balloon retention mechanism at the pylorus.. This represents distal migration compared to the prior examination. Postsurgical changes of the left lower quadrant small bowel. No evidence of bowel obstruction. Large bowel is unremarkable. The appendix is not identified. No right lower quadrant inflammation. BONES AND SOFT TISSUE: Multilevel thoracic spine fusion hardware unchanged.. No acute osseous abnormality. Postsurgical changes of the anterior abdominal wall. IMPRESSION: Near hydropic, distended gallbladder with questionable pericholecystic inflammation. No radiopaque calculi are identified though ultrasound is more sensitive for detection of gallstones and is suggested for further evaluation. Balloon retention gastrostomy catheter, with the tip and retention balloon at the pylorus. Repositioning is again suggested. Signed by: Dr. Asad Mccullough M.D. on 03/01/2020 4:07 PM
[2020-03-01 18:00] VITALS: BP 116/59
[2020-03-01 18:02] VITALS: BP 116/59
[2020-03-01] MEDS: ONDANSETRON HCL INJ 2MG/ML 2ML 2 MG/ML VIAL IV PRN ×2 (19:25→23:38)
[2020-03-01 20:07] VITALS: BP 104/54
--- NOTE | 2020-03-01 20:50 | Diagnostic Imaging Report ---
EXAM: Right Upper Quadrant Abdominal Ultrasound INDICATION: ^epigastric pain COMPARISON: None. TECHNIQUE: Transverse and longitudinal images of the right upper abdomen were obtained. FINDINGS: Liver: Size: 16.4 cm in the right midclavicular line, normal Appearance: Normal echogenicity, smooth contour Mass: No focal masses Gallbladder: Stones/Sludge: None Wall: 0.3 cm Appearance: Nonspecific gallbladder distention distention. No gallbladder wall thickening. Sonographic Soliman's Sign: Negative Bile Ducts: Intrahepatic Ducts: No dilatation Extrahepatic Ducts: Common bile duct measures 0.3 cm, no dilatation Pancreas: Visualized portions of the pancreatic head, neck and proximal body are normal. Right Kidney: Size: 9.9 x 4 x 5.3 cm Echogenicity: Normal Parenchymal thickness: Normal Collecting System: No hydronephrosis Stone: None Cyst/Mass: None Vessels: Aorta: Visualized portions are normal Inferior Vena Cava: Visualized portions are normal Main Portal Vein: 0.8 cm, normal size with hepatopetal flow. Free Fluid: No ascites or pleural effusion IMPRESSION: Gallbladder distention which may be due to a fasting state. No gallstones, gallbladder wall thickening, or other sonographic evidence of acute cholecystitis. Signed by: Piero Trivedi MD on 03/01/2020 8:47 PM
[2020-03-01 20:54] VITALS: BP 104/54
[2020-03-01] MEDS ORDERED: PROMETHAZINE HC25 M1 PO (23:44)
[2020-03-01] MEDS ORDERED: PROTONIX20 MG PO (23:44)
[2020-03-02] VITALS (7 sets, daily range): BP systolic 92–106; BP diastolic 46–62
[2020-03-02] MEDS ORDERED: PANTOPRAZOLE 40 MG 10ML VIAL INJ SCH (00:15)
[2020-03-02] MEDS ORDERED: SODIUM CHLORIDE 0.9% 1000ML 1,000 ML IV SCH (00:15)
[2020-03-02] MEDS: PIPER-TAZ 3.375 GM 50 ML IV SCH ×4 (00:18→17:42)
[2020-03-02] MEDS: LACTATED RINGER'S 1,000 ML INJ SCH ×6 (02:21→22:00)
[2020-03-02] MEDS: MORPHINE SULFATE 2 MG/ML SYR 1ML IV PRN ×3 (03:06→17:41)
[2020-03-02] MEDS: ONDANSETRON HCL INJ 2MG/ML 2ML 2 MG/ML VIAL IV PRN (03:06)
[2020-03-02 06:00] LABS: BASOPHILS % 0.3 % (0.0-1.0); EOSINOPHILS # (AUTO) 0.1 (0.0-0.4); EOSINOPHILS % 0.9 % (0.0-6.0); HEMATOCRIT 33.1 % (34.2-44.1); HEMOGLOBIN 10.7 g/dL (12.0-16.0); LYMPHOCYTES # (AUTO) 2.2 (1.0-3.2); LYMPHOCYTES % 31.6 % (18.0-39.1); MEAN CORPUSCULAR HEMOGLOBIN 28.3 pg (28-32); MEAN CORPUSCULAR HGB CONC 32.3 g/dL (31-35); MEAN CORPUSCULAR VOLUME 87.6 fL (81-99); MONOCYTES # (AUTO) 0.4 (0.2-0.8); MONOCYTES % 5.3 % (4.4-11.3); NEUTROPHILS # (AUTO) 4.3 (2.1-6.9); NEUTROPHILS % 61.5 % (38.7-80.0); PLATELET COUNT 222 x10e3/uL (140-360); RED BLOOD COUNT 3.78 x10e6/uL (3.6-5.1); RED CELL DISTRIBUTION WIDTH 14.1 % (11.7-14.4)
[2020-03-02 06:29] LABS: ALANINE AMINOTRANSFERASE 13 IU/L (0-55); ALBUMIN/GLOBULIN RATIO 0.9 (0.8-2.0); ALKALINE PHOSPHATASE 62 IU/L (40-150); ANION GAP 8.6 mmol/L (8-16); BLOOD UREA NITROGEN 5 mg/dL (7-26); BUN/CREATININE RATIO 8 (6-25); CALCIUM 8.5 mg/dL (8.4-10.2); CARBON DIOXIDE 26 mmol/L (22-29); CHLORIDE 108 mmol/L (98-107); CREATININE, SERUM 0.65 mg/dL (0.57-1.11); EST GLOMERULAR FILTRATION RATE > 60 ML/MIN (60-); GLUCOSE 86 mg/dL (74-118); POTASSIUM 3.6 mmol/L (3.5-5.1); SODIUM 139 mmol/L (136-145)
[2020-03-02 06:42] LABS: CHOL/HDL RATIO 2.6 (3.0-3.6); MAGNESIUM 1.8 MG/DL (1.3-2.1); PHOSPHORUS 3.6 MG/DL (2.3-4.7)
[2020-03-02 07:01] LABS: THYROID STIMULATING HORMONE 2.028 uIU/mL (0.350-4.940)
[2020-03-02] MEDS ORDERED: ACETAMINOPHEN 1000 MG/100 ML IV PRN (08:30)
[2020-03-02] MEDS: PANTOPRAZOLE 40 MG 10ML VIAL IV SCH (09:45)
[2020-03-02] MEDS ORDERED: ENOXAPARIN SOD INJ 40 MG/0.4 ML SYR SC SCH (17:00)
--- NOTE | 2020-03-02 17:50 | Diagnostic Imaging Report ---
Hepatobiliary Scan with Gallbladder Ejection Fraction Clinical information: 24 F with pancreatitis; small bowel obstruction in 11/2019. Technique: Following intravenous administration of 6.6 millicuries of Tc-99m mebrofenin, dynamic images of the abdomen in the anterior projection were obtained through 20 minutes. Sincalide (CCK analog) 1.9 micrograms was administered intravenously over 30 minutes with additional imaging for determination of gallbladder ejection fraction. Discussion: Perfusion of the liver is normal. Extraction of tracer by the liver parenchyma is normal. Tracer appears promptly within the biliary tract. The gallbladder begins to fill at 8 minutes post injection of tracer and fills adequately. Tracer is seen in the small bowel during the sincalide infusion. There is no contractile response by the gallbladder to the pharmacologic dose of sincalide. No emptying of the gallbladder occurs during the 30 minute infusion. Impression: 1. Filling of the gallbladder excludes acute cystic duct obstruction/acute cholecystitis. 2. The gallbladder ejection fraction is undefined as there is no emptying of the gallbladder during the infusion of sincalide. This absence of a contractile response to sincalide supports the clinical diagnosis of chronic cholecystitis/gallbladder dyskinesia. Signed by: Dr. Valentina Campbell M.D. on 03/02/2020 5:47 PM
--- NOTE | 2020-03-02 19:27 | Consultation ---
DATE OF CONSULTATION: 03/02/2020 HISTORY OF PRESENT ILLNESS: The patient is a 24-year-old female presents with complaints of epigastric abdominal pain, just started about four days ago. She went to [facility], where she was found to have very elevated lipase, suggested of pancreatitis, however, the pancreas did not appear inflamed on CT scan. She was also noted to have distended gallbladder. She has associated nausea and vomiting. PAST MEDICAL HISTORY: Significant for previous lap band in 2013. She has a gastrostomy tube in place. She has had previous section. She has had six previous back surgeries. She had an abdominal surgery about three months ago for intestinal obstruction. MEDICATIONS: At home, were: 1. Protonix. 2. Phenergan. ALLERGIES: SHE HAS ALLERGY TO BACTRIM AND VANCOMYCIN. FAMILY HISTORY: Noncontributory. SOCIAL HISTORY: The patient does not smoke cigarettes or drink alcohol. REVIEW OF SYSTEMS: As stated above. She has had no fever, no weight loss. PHYSICAL EXAMINATION: GENERAL: The patient is awake and alert, in no distress. VITAL SIGNS: Normal. HEENT: Sclerae are not icteric. NECK: Has no masses. LUNGS: Equal breath sounds, are clear bilaterally. CARDIAC: Regular rate and rhythm. ABDOMEN: Tender in the epigastrium. There is a healed transverse wound at the level of the umbilicus. There are no signs of peritonitis. No distention. EXTREMITIES: Have no edema. NEUROLOGIC: Grossly intact. LABORATORY DATA: Lipase on admission was 5670, repeat today is 226. Liver function tests were normal. CBC revealed mild anemia, hemoglobin 10.7 and hematocrit 33. ASSESSMENT: A 24-year-old female with abdominal pain due to pancreatitis. Of course, this with rapidly decreasing lipase is suggestive of gallstone pancreatitis, though gallstones have not been seen on imaging. HIDA scan is to be done was also which is pending, but her symptoms are very suggestive of gallbladder disease. At this point, we recommend keeping the patient n.p.o. on IV fluids. Await results of the HIDA scan. Thank you for asking me to see Ms. Ayala. MD JUAN MANUEL Douglas/JOHN /[id number]
[2020-03-03] VITALS (7 sets, daily range): BP systolic 93–99; BP diastolic 46–65
[2020-03-03] MEDS: ONDANSETRON HCL INJ 2MG/ML 2ML 2 MG/ML VIAL IV PRN (00:10)
[2020-03-03] MEDS: MORPHINE SULFATE INJ 4 MG/ML INJ 1ML IV PRN ×6 (00:10→21:45)
[2020-03-03] MEDS: PIPER-TAZ 3.375 GM 50 ML IV SCH ×4 (00:35→18:24)
[2020-03-03] MEDS: LACTATED RINGER'S 1,000 ML INJ SCH ×5 (03:37→18:24)
[2020-03-03 06:18] LABS: BASOPHILS % 0.3 % (0.0-1.0); EOSINOPHILS # (AUTO) 0.1 (0.0-0.4); EOSINOPHILS % 0.9 % (0.0-6.0); HEMOGLOBIN 10.8 g/dL (12.0-16.0); LYMPHOCYTES # (AUTO) 1.9 (1.0-3.2); MEAN CORPUSCULAR HEMOGLOBIN 28.4 pg (28-32); MEAN CORPUSCULAR HGB CONC 32.7 g/dL (31-35); MEAN CORPUSCULAR VOLUME 86.8 fL (81-99); MONOCYTES # (AUTO) 0.4 (0.2-0.8); MONOCYTES % 5.7 % (4.4-11.3); NEUTROPHILS # (AUTO) 4.1 (2.1-6.9); NEUTROPHILS % 63.9 % (38.7-80.0); PLATELET COUNT 202 x10e3/uL (140-360); RED CELL DISTRIBUTION WIDTH 13.6 % (11.7-14.4)
[2020-03-03 06:51] LABS: ALANINE AMINOTRANSFERASE 12 IU/L (0-55); ALBUMIN 2.8 g/dL (3.5-5.0); ALBUMIN/GLOBULIN RATIO 0.9 (0.8-2.0); ALKALINE PHOSPHATASE 56 IU/L (40-150); ANION GAP 10.8 mmol/L (8-16); BLOOD UREA NITROGEN < 5 mg/dL (7-26); CALCIUM 8.5 mg/dL (8.4-10.2); CARBON DIOXIDE 25 mmol/L (22-29); CHLORIDE 106 mmol/L (98-107); CREATININE, SERUM 0.58 mg/dL (0.57-1.11); EST GLOMERULAR FILTRATION RATE > 60 ML/MIN (60-); GLUCOSE 67 mg/dL (74-118); LIPASE 31 U/L (8-78); POTASSIUM 3.8 mmol/L (3.5-5.1); SODIUM 138 mmol/L (136-145)
[2020-03-03 06:54] LABS: BUN/CREATININE RATIO 9 (6-25)
[2020-03-03] MEDS: PANTOPRAZOLE 40 MG 10ML VIAL IV SCH (09:00)
[2020-03-04] VITALS (11 sets, daily range): BP systolic 87–154; BP diastolic 39–89
[2020-03-04] MEDS: LACTATED RINGER'S 1,000 ML INJ SCH ×3 (00:07→15:45)
[2020-03-04] MEDS: PIPER-TAZ 3.375 GM 50 ML IV SCH ×4 (00:40→17:07)
[2020-03-04] MEDS: MORPHINE SULFATE INJ 4 MG/ML INJ 1ML IV PRN ×5 (02:03→21:23)
[2020-03-04] MEDS: PANTOPRAZOLE 40 MG 10ML VIAL IV SCH (08:48)
[2020-03-04] MEDS ORDERED: BUPIVACAINE HCL 0.5% INJ 30 ML VIAL INJ ONE (12:14)
[2020-03-04] MEDS ORDERED: FENTANYL CITRATE/PF 100MCG/2 ML INJ ONE ×2 (14:17→15:23)
[2020-03-04] MEDS ORDERED: MIDAZOLAM HCL 2 MG/2 ML VIAL ONE (14:17)
[2020-03-04] MEDS ORDERED: ONDANSETRON HCL INJ 2MG/ML 2ML 2 MG/ML VIAL IV PRN (14:30)
[2020-03-04] MEDS ORDERED: MEPERIDINE HCL INJ 25 MG/ML VIAL ONE (14:56)
[2020-03-04] MEDS ORDERED: ROCURONIUM BROMIDE 10 MG/ML 5ML VIAL IV ONE (19:50)
[2020-03-04] MEDS ORDERED: LIDOCAINE HCL 2% LOCAL INJ 5 ML SDV VIAL INJ ONE (19:50)
[2020-03-04] MEDS ORDERED: ONDANSETRON HCL INJ 2MG/ML 2ML 2 MG/ML VIAL ONE (19:50)
[2020-03-04] MEDS ORDERED: DEXAMETHASONE SOD PHOS INJ 4 MG/ML VIAL ONE (19:50)
[2020-03-04] MEDS ORDERED: SUCCINYLCHOLINE CHLORIDE 20 MG/ML 10ML VIAL ONE (19:50)
[2020-03-04] MEDS ORDERED: SEVOFLURANE INHAL SOLN 250 ML PEN BTL ONE (19:50)
[2020-03-04] MEDS ORDERED: NEOSTIGMINE 1 MG/ML 10ML VIAL ONE (19:50)
[2020-03-04] MEDS ORDERED: METOCLOPRAMIDE HCL 10 MG/2ML VIAL ONE (19:50)
[2020-03-04] MEDS ORDERED: ACETAMINOPHEN 1000 MG/100 ML IV ONE (19:50)
[2020-03-04] MEDS ORDERED: GLYCOPYRROLATE INJ 0.2 MG/ML VIAL ONE (19:50)
[2020-03-04] MEDS ORDERED: PROPOFOL IV EMULSION 10 MG/ML 20 ML VIAL ONE (19:50)
--- NOTE | 2020-03-04 22:36 | Operative Report ---
DATE OF PROCEDURE: 03/04/2020 SURGEON: Asad Bedolla MD PREOPERATIVE DIAGNOSES: Pancreatitis, cholecystitis. POSTOPERATIVE DIAGNOSIS: Pancreatitis, cholecystitis. PROCEDURE: Diagnostic laparoscopy, laparoscopic cholecystectomy. TYPEWRITER ASSEMBLER: None. ANESTHESIA: General. INDICATIONS AND FINDINGS: The patient is a 24-year-old female admitted with epigastric abdominal pain. Workup for pancreatitis with abnormal HIDA scan with nonfunctioning gallbladder. Surgery based on the gallbladder with changes of cholesterolosis was very distended. The cystic duct was about 2 mm in diameter. Common bile duct was about 5 mm in diameter. Liver appeared normal. There were no changes suggested, pancreatitis seen. There were adhesions in the lower abdomen involving omentum. TECHNIQUE: After adequate general endotracheal anesthesia, the patient in supine position, the abdomen was prepped and draped in sterile fashion with ChloraPrep solution. In the epigastrium to the right of the midline, skin and subcutaneous tissues were infiltrated with 0.5% Marcaine. A transverse incision was made. Abdominal wall was elevated and Veress needle was introduced. Pneumoperitoneum was then created. A 10 mm trocar and cannula was then passed through this wound. Laparoscopic camera was introduced. Initial laparoscopy revealed the gallbladder to be distended with changes of cholesterolosis. Liver appeared normal. There were no changes suggested pancreatitis. There were adhesions to lower abdomen. A 10 mm trocar and cannula was placed just above the umbilicus to the right of the midline and two 5 mm trocars and cannulas were placed in the right upper quadrant, these were placed under direct vision. Gallbladder was tense and was decompressed with a needle. The fundus of the gallbladder was grasped, retracted superiorly. There were adhesions over the neck and fundus of the gallbladder involving omentum, which were lysed. Peritoneum over the neck of the gallbladder was incised. The gallbladder and cystic duct junction were dissected free. Cystic artery was also dissected free. The neck of the gallbladder was completely dissected free. The cystic duct was divided between hemoclips with three clips being left on the common bile duct side. Cystic artery was also divided between hemoclips close to the gallbladder. The gallbladder was dissected free from the liver using scissors and electrocautery. Once it was entirely free, it was placed into an Endopouch and brought through the epigastric cannula. There were no stones palpable. Gallbladder bed was inspected for hemostasis, which was seen to be adequate. It was irrigated with saline. All fluid aspirated inspected once again for hemostasis, which was seen to be adequate. Instruments and cannulas were removed. Pneumoperitoneum was evacuated. Wounds were then closed. Fascia in the umbilical and epigastric wound closed with 0 Vicryl. Skin to all wounds closed with bronwyn. Sterile dressings applied to each wound. The patient tolerated the procedure well. Estimated blood loss was 10 mL. There were no complications. All counts were correct. The patient was taken to the recovery room in satisfactory condition. MD JUAN MANUEL Douglas/MODL /[id number]
[2020-03-05] VITALS (8 sets, daily range): BP systolic 94–115; BP diastolic 51–61
[2020-03-05] MEDS: PIPER-TAZ 3.375 GM 50 ML IV SCH ×4 (00:23→22:00)
[2020-03-05] MEDS: LACTATED RINGER'S 1,000 ML INJ SCH ×2 (00:23→06:38)
[2020-03-05] MEDS: MORPHINE SULFATE INJ 4 MG/ML INJ 1ML IV PRN ×2 (01:47→05:54)
[2020-03-05 08:39] LABS: BASOPHILS % 0.1 % (0.0-1.0); EOSINOPHILS # (AUTO) 0.1 (0.0-0.4); EOSINOPHILS % 0.7 % (0.0-6.0); HEMATOCRIT 32.9 % (34.2-44.1); HEMOGLOBIN 10.7 g/dL (12.0-16.0); LYMPHOCYTES % 28.2 % (18.0-39.1); MEAN CORPUSCULAR HEMOGLOBIN 28.1 pg (28-32); MEAN CORPUSCULAR HGB CONC 32.5 g/dL (31-35); MEAN CORPUSCULAR VOLUME 86.4 fL (81-99); MONOCYTES # (AUTO) 0.5 (0.2-0.8); MONOCYTES % 6.7 % (4.4-11.3); NEUTROPHILS # (AUTO) 4.6 (2.1-6.9); NEUTROPHILS % 64.2 % (38.7-80.0); PLATELET COUNT 227 x10e3/uL (140-360); RED BLOOD COUNT 3.81 x10e6/uL (3.6-5.1); RED CELL DISTRIBUTION WIDTH 13.8 % (11.7-14.4)
[2020-03-05 09:00] LABS: ANION GAP 11.4 mmol/L (8-16); BLOOD UREA NITROGEN < 5 mg/dL (7-26); CALCIUM 8.8 mg/dL (8.4-10.2); CARBON DIOXIDE 26 mmol/L (22-29); CHLORIDE 106 mmol/L (98-107); CREATININE, SERUM 0.67 mg/dL (0.57-1.11); EST GLOMERULAR FILTRATION RATE > 60 ML/MIN (60-); GLUCOSE 102 mg/dL (74-118); POTASSIUM 3.4 mmol/L (3.5-5.1); SODIUM 140 mmol/L (136-145)
[2020-03-05] MEDS ORDERED: ONDANSETRON HCL 4 MG ORAL DISINTEGRATING TAB PO PRN (09:00)
[2020-03-05 09:05] LABS: BUN/CREATININE RATIO 7 (6-25)
[2020-03-05] MEDS: HYDROCODONE/APAP 7.5MG-325MG 1 EA TAB PO PRN ×2 (09:48→21:00)
[2020-03-05] MEDS ORDERED: PANTOPRAZOLE SOD 40 MG TABEC PO ONE (10:15)
[2020-03-05] MEDS ORDERED: POTASSIUM CHLORIDE 10MEQ EA PO ONE (10:45)
[2020-03-05] MEDS: MIDODRINE HCL 5 MG TABLET PO PRN (17:14)
[2020-03-05] MEDS ORDERED: SODIUM CHLORIDE 0.9% 250ML 250 ML ONE (22:06)
[2020-03-06 00:15] VITALS: BP_SYST 87; BP_SYST 96; BP_DIAS 54
[2020-03-06 04:00] VITALS: BP 95/54
[2020-03-06] MEDS: HYDROCODONE/APAP 7.5MG-325MG 1 EA TAB PO PRN (04:30)
[2020-03-06] MEDS: MIDODRINE HCL 5 MG TABLET PO PRN (05:00)
[2020-03-06] MEDS: PIPER-TAZ 3.375 GM 50 ML IV SCH (05:52)
[2020-03-06] MEDS ORDERED: PANTOPRAZOLE SOD 40 MG TABEC PO SCH (07:30)
[2020-03-06 07:56] VITALS: BP 95/54
[2020-03-06 08:04] VITALS: BP 112/60
[2020-03-06] MEDS ORDERED: ULTRAM50 MG PO (10:34)
[2020-03-06] MEDS ORDERED: ZOFRAN4 MG PO (10:34)
[2020-03-06] MEDS ORDERED: MULTI-VITAMIN1 EACH PO (10:35)
[2020-03-06 11:42] VITALS: BP 113/66
--- NOTE | 2020-03-06 23:54 | Discharge Summary ---
CONSULTANTS: 1. Asad Bedolla MD. 2. Joel Marshall MD. FINAL DIAGNOSES: 1. Severe dysfunction gallbladder. 2. Status post laparoscopic cholecystectomy. 3. Gallbladder-induced acute pancreatitis, resolved. 4. Morbid obesity with history of laparoscopic gastric band. SUMMARY: The patient is a young 24-year-old female with recent history of small-bowel obstruction. The patient underwent ileoileal bypass surgery. The patient has PEG tube in place. The procedures were done in November and then subsequently, the patient was discharged home. At home, the patient was doing better. She had a tube feeding, but also she eats when she able to tolerate. The patient, however, came in this time with increasing abdominal pain. The patient had a CT scan and lab work shown most likely gallbladder-induced pancreatitis. Her lipase was 5670 and amylase was 42. The patient underwent multiple tests done. First, she had an abdominal and pelvic CT scan and then gallbladder ultrasound and subsequently HIDA scan of the gallbladder. Gallbladder ejection fraction was 0. No emptying of the gallbladder. The patient was seen by Dr. Asad Bedolla. The patient, subsequently underwent laparoscopic cholecystectomy. The procedures were done on March 04, 2020. The patient is slowly doing better. Blood pressure improving. She is able to eat and drink. The patient is stable at this time. Lipase is normalized. Lab work otherwise unremarkable. Potassium replacement. The patient is stable at this time. She will go home with the following medication. Tramadol p.r.n. for pain, Zofran p.r.n. for nausea and vomiting, and multivitamin. She will resume her home medication. She is instructed to follow up with her family physician within a week. The patient will follow up with Dr. Asad Bedolla within a week for postoperative care as well. The patient is otherwise stable, discharged home today. MD CHAYO Miranda/JOHN /[id number]
== END 2020-03-06 11:47 | disposition home or self-care (01) | DRG 417 ==
LOC: FSED 13:08 → ERHOLD 14:03 → MED/SURG 17:52
PROVIDERS: ADMIT Internal Medicine; ATTEND Internal Medicine
PROC: 0FT44ZZ Resection of Gallbladder, Percutaneous Endoscopic Approach (ICD-10-PCS; principal; 2020-03-04 13:00)
DX: K81.1 Chronic cholecystitis (principal); K85.10 Biliary acute pancreatitis without necrosis or infection; K82.8 Other specified diseases of gallbladder; Z98.84 Bariatric surgery status; Z98.0 Intestinal bypass and anastomosis status; Z88.1 Allergy status to other antibiotic agents; Z88.2 Allergy status to sulfonamides; Z88.8 Allergy status to other drugs, medicaments and biological substances; E66.9 Obesity, unspecified; Z68.36 Body mass index [BMI] 36.0-36.9, adult; Z93.1 Gastrostomy status; K31.84 Gastroparesis
CPT/HCPCS: 36415; 74177; 76705; 78227; 80048; 80053; 80061; 80076; 81003; 81025; 82150; 82607; 82746; 83540; 83690; 83735; 84100; 84443; 84466; 84702; 85025; 87635; 88304; 93005; 96360; 96372; 96374; 96375; 96376; 99284; A9537; J0330; J0500; J1100; J1650; J2001; J2175; J2250; J2270; J2405; J2543; J2710; J2765; J3010; J7030; J7050; J7121; Q9967

== ENCOUNTER 2020-04-30 15:37 | Emergency (ER) | payer OTHER ==
[~2020-04-30] VITALS: Ht 162.6 cm; Wt 99.8 kg
[~2020-04-30 15:37] MED LIST changes: +MULTI-VITAMIN1 EACH PO; +PROMETHAZINE HC25 M1 PO; +PROTONIX20 MG PO; +ZOFRAN4 MG PO
[2020-04-30] MEDS ORDERED: DIATRIZOATE MEGL/DIATRIZOA SOD 30 ML BTL PO ONE (16:39)
--- NOTE | 2020-04-30 17:29 | NUR ---
HISTORY TIME [facility] FOR LAST 10 MONTHS. 2018 -- C SECTION DELIVERY SERAFIN ELLIOTT NOV 19 2019- WENT TO [facility] HAD PEG PLACED AND EXPLORATORY SURGERY DONE WITH NEG RESULTS PER PATIENT. Nov, ADMITTED TO [facility] WITH SBO JANUARY 2020, ADMITTED PANCREATITIS AND HAD GALLBLADDER REMOVED. MARCH LAP BAND REMOVED IN [facility], March ADMITTED TO [facility] WITH SBO AND RIGHT LUNG COLASPED. HAD FLUID REMOVED FROM RIGHT LUNG TWICE, LAST TIME DRAIN LEFT IN FOR 6 DAYS PER PT. CYST FOUND IN FRONT OF LIVER AND A MIKEY DRAIN PLACED. SUTURES NOTED APPROX 8 INCHES ACROSS ABD. NO REDNESS NOTED.
--- NOTE | 2020-04-30 17:37 | NUR ---
PT STATES ISSUES WITH ABD STARTED AFTER GIVING TO HER FIST CHILD AT [facility].
--- NOTE | 2020-04-30 18:30 | NUR ---
NO VOMITING NOTES.
--- NOTE | 2020-04-30 18:36 | Emergency Department Note ---
History of Present Illnes History of Present Illness Chief Complaint: Abdominal Complaints History of Present Illness This is a 25 year old female . Chief Complaint Comment PT STATES VOMITING STARTED LAST NIGHT WITH CHILLS, PT STATES SHE WAS DISCHARGED FROM [facility] LAST MONDAY AFTER BEING ADM ITTED March FOR A SBO AND A COLASPED RIGHT LUNG, LUNG HAD TO BE DRAINED TWICE AND SECOND TIME DRAIN LEFT IN FOR 6 DAYS, PT HAS EXTENSIVE GASTRIC HX. HEALING SUTURE TO ABD, PEG IN PLACE, MIKEY DRAIN NOTED WITH NO DRAINAGE. PT STATES SHE DOES EAT AND ALSO USE THE PEG. NO FEVER NOTED AT TRIAGE. VSS Historian: Patient Arrival Mode: Car Onset (how long ago): day(s) (2) Location: EPIGASTRIC Quality: DULL Radiation: Reports non-radiation Severity: mild Onset quality: gradual Duration (how long): day(s) (2) Timing of current episode: intermittent Progression: waxing and waning Chronicity: new Context: Reports recent surgery; Denies recent illness, Denies recent immobilization, Denies recent travel, Denies trauma/injury, Denies new medications, Denies hx of DVT/PE, Denies non- compliance w/ medications, Denies other Relieving factors: none Exacerbating factors: none Associated symptoms: Reports nausea/vomiting; Denies denies other symptoms, Denies confusion, Denies chest pain, Denies cough, Denies diaphoresis, Denies fever/chills, Denies headaches, Denies loss of appetite, Denies malaise, Denies rash, Denies seizure, Denies shortness of breath, Denies syncope, Denies weakness, Denies other Treatments prior to arrival: none Past Medical/Family History Physician Review I have reviewed the patient's past medical and family history. Any updates have been documented here. Past Medical History Recent Fever: No Clinical Suspicion of Infectio: No New/Unexplained Change in Ment: No Past Medical History: UTI's, Chronic Back Pain Other Medical History: gastroparesis Past Surgical History: , Back Surgery, Colon Resection Other Surgery: GASTRIC BAND, PEG PLACEMENT, GALLBLADDER REMOVED JANUARY 2020, LAP BAND REMOVED IN [place] MARCH 2020, March MIKEY DRAIN TO CYST ON LIVER, CHEST TUBE DRAIN. Social History Smoking Cessation: Never Smoker Alcohol Use: None Any Illegal Drug Use: No Physically hurt or threatened: No Other Last Tetanus: UNK Any Pre-Existing Lines (PICC,: Yes Review of Systems Review of Systems Constitutional: Reports no symptoms EENTM: Reports no symptoms Cardiovascular: Reports no symptoms Respiratory: Reports no symptoms Gastrointestinal: Reports as per HPI Genitourinary: Reports no symptoms Musculoskeletal: Reports no symptoms Integumentary: Reports no symptoms Neurological: Reports no symptoms Psychological: Reports no symptoms Endocrine: Reports no symptoms Hematological/Lymphatic: Reports no symptoms Physical Exam Related Data Allergies: Coded Allergies: sulfamethoxazole (Verified Allergy, Severe, hives and shortness of breath, 01/03/20) trimethoprim (Verified Allergy, Severe, hives and shortness of breath, 01/03/20) vancomycin (Verified Allergy, Severe, hives and shortness of breath, 0) Triage Vital Signs Vital Signs Date Time Temp Pulse Resp B/P (MAP) Pulse Ox O2 Delivery O2 Flow Rate FiO2 04/30/20 17:17 98.5 84 18 122/69 100 Room Air Vital signs reviewed: Yes Physical Exam CONSTITUTIONAL Constitutional: Present well-developed, Present well-nourished HENT HENT: Present normocephalic, Present atraumatic, Present oropharynx clear/moist, Present nose normal HENT L/R: Present left ext ear normal, Present right ext ear normal EYES Eyes: Reports PERRL, Reports conjunctivae normal NECK Neck: Present ROM normal PULMONARY Pulmonary: Present effort normal, Present breath sounds normal CARDIOVASCULAR Cardiovascular: Present regular rhythm, Present heart sounds normal, Present capillary refill normal, Present normal rate GASTROINTESTINAL Abdominal: Present soft, Present nontender, Present bowel sounds normal, Present other (PEG AND RUQ DRAINIGE) GENITOURINARY Genitourinary: Present exam deferred SKIN Skin: Present warm, Present dry MUSCULOSKELETAL Musculoskeletal: Present ROM normal NEUROLOGICAL Neurological: Present alert, Present oriented x 3, Present no gross motor or sensory deficits PSYCHOLOGICAL Psychological: Present mood/affect normal, Present judgement normal Results Laboratory Lab results reviewed: Yes Imaging Imaging results reviewed: Yes Assessment & Plan Medical Decision Making MDM OBSTRUCTION PERFORATION Reassessment Reassessment time: 18:23 Reassessment BETTER Assessment & Plan Final Impression: (1) Abdominal pain, acute, epigastric (2) Vomiting Depart Disposition: HOME, SELF-CARE Last Vital Signs Date Time Temp Pulse Resp B/P (MAP) Pulse Ox O2 Delivery O2 Flow Rate FiO2 04/30/20 17:17 98.5 84 18 122/69 100 Room Air Home Meds Reported Medications Multivitamin (MULTI-VITAMIN DAILY) 1 Each Tablet, 1 TAB PO DAILY 03/06/20 Ondansetron Hcl* (ZOFRAN*) 4 Mg Tablet, 4 MG PO Q6H PRN for NAUSEA 03/06/20 Tramadol Hcl (ULTRAM) 50 Mg Tablet, 50 MG PO Q6H for PAIN, TAB 03/06/20 Pantoprazole Sodium (PROTONIX) 20 Mg Tablet.dr, 20 MG PO BID, #60 TAB 03/01/20 Promethazine Hcl (PROMETHAZINE HCL) 25 Mg Tablet, 25 MG PO Q4H PRN for NAUSEA AND VOMITING, TAB 03/01/20 Medications in the ED Diatrizoate Meglum/ Diatrizoate Sod 30 ml STK-MED ONCE PO ; Start 04/30/20 at 16:39; Stop 04/30/20 at 16:34; Status DC JACQUES BANKS MD Apr 30, 2020 18:36
[2020-04-30] MEDS ORDERED: ONDANSETRON HCL INJ 2MG/ML 2ML 2 MG/ML VIAL IV STA (18:37)
--- NOTE | 2020-04-30 18:43 | Diagnostic Imaging Report ---
EXAM: CT Abdomen and Pelvis WITHOUT contrast INDICATION: Abdominal pain. Nausea. Vomiting. COMPARISON: None. TECHNIQUE: Abdomen and pelvis were scanned utilizing a multidetector helical scanner from the lung base to the pubic symphysis without administration of IV contrast. Absence of intravenous contrast decreases sensitivity for detection of focal lesions and vascular pathology. Coronal and sagittal reformations were obtained. Routine protocol was performed. IV CONTRAST: None. ORAL CONTRAST: Water RADIATION DOSE: Total DLP: 1235.97 mGy*cm Estimated effective dose: (DLP x 0.015 x size factor) mSv COMPLICATIONS: None FINDINGS: LINES and TUBES: Interval placement of a pigtail catheter in the right upper quadrant anteriorly, with distal tip coiled just anterior and superior to the medial segment of the left hepatic lobe. Gastrostomy tube is again observed. Previously present gastric LAP-BAND has been removed. LOWER THORAX: Patchy density in the right lung base suggestive of subsegmental atelectasis. HEPATOBILIARY: No focal hepatic lesions. No biliary ductal dilation. GALLBLADDER: Surgically absent. SPLEEN: No splenomegaly. PANCREAS: No focal masses or ductal dilatation. ADRENALS: No adrenal nodules . KIDNEYS/URETERS: No hydronephrosis. No cystic or solid mass lesions. No stones. GI TRACT: No abnormal distention, wall thickening, or evidence of bowel obstruction. Anastomotic suture in small bowel loops in the upper pelvis as seen on image 53 series 2. Appendix is normal. PELVIC ORGANS/BLADDER: Unremarkable. LYMPH NODES: No lymphadenopathy. VESSELS: Unremarkable. PERITONEUM / RETROPERITONEUM: There is a small volume of free fluid in the anterior right perihepatic space, with mild mass effect on the left hepatic lobe as seen on image 18 series 2, which may represent a collection of bile. It is associated with a small volume of loculated air as seen on image 13 series 2 also likely related to procedure/presence of a pigtail catheter. There is fat stranding in the superior anterior abdomen. BONES: Transpedicular screws system fusion of posterior lower thoracic spine involving at least T8-T11. SOFT TISSUES: There is subcutaneous fat stranding in the supra umbilical anterior abdominal wall likely related to recent surgery. IMPRESSION: 1. Percutaneous pigtail drainage catheter in the anterior superior perihepatic space, associated with a small air and fluid collection which may represent bile. 2. Interval cholecystectomy. 3. Interval removal of gastric lap band. Signed by: Dr. Ortega Turcios M.D. on 04/30/2020 8:04 PM
[2020-04-30] MEDS ORDERED: KETOROLAC TROMETHAMINE 30 MG/ML VIAL ONE (18:45)
[2020-04-30] MEDS ORDERED: KETOROLAC TROMETHAMINE 30 MG/ML VIAL IV STA (18:46)
== END 2020-04-30 19:03 | disposition home or self-care (01) ==
LOC: FSED 15:37
DX: R10.13 Epigastric pain (principal); R11.2 Nausea with vomiting, unspecified
CPT/HCPCS: 74176; 99283; J1885; J2405

== ENCOUNTER → 2021-07-19 | Outpatient (CLI) | payer OTHER | LOC: DX 11:05 | PROVIDERS: ATTEND Internal Medicine Gastroenterology | DX: F50.89 Other specified eating disorder (principal) | CPT/HCPCS: 74230; 81025; 92526; 92611; U0002 ==

== ENCOUNTER → 2021-07-27 | Outpatient (CLI) | payer OTHER | LOC: DX 08:58 | PROVIDERS: ATTEND Internal Medicine Gastroenterology | DX: K30 Functional dyspepsia (principal); F50.89 Other specified eating disorder; R10.30 Lower abdominal pain, unspecified | CPT/HCPCS: 74246; 74250; 81025; U0002 ==

== ENCOUNTER → 2021-10-19 | Day surgery (SDC) | payer OTHER ==
[~2021-10-19] MED LIST changes: +ALBUTEROL2.5 MG/0.5 NEB; +DICYCLOMINE HCL10 MG PEG; +FENTANYL CITRATE/PF 100MCG/2 ML INJ ONE; +LIDOCAINE HCL 2% LOCAL INJ 5 ML SDV VIAL INJ ONE; +METOCLOPRAM5 MG/5 ML PEG; +METOCLOPRAMIDE10 MG PEG; +MIDAZOLAM HCL 2 MG/2 ML VIAL ONE; +OMEPRAZOLE40 MG PEG; +POVIDONE IODINE 0.05% 0.05 % ML PO ONE; +PROPOFOL IV EMULSION 10 MG/ML 20 ML VIAL ONE
[2021-10-19 10:15] VITALS: BP 133/77
== END | disposition home or self-care (01) ==
LOC: OR 07:07
PROVIDERS: ATTEND Internal Medicine Gastroenterology
DX: K29.50 Unspecified chronic gastritis without bleeding (principal); D12.4 Benign neoplasm of descending colon; K31.819 Angiodysplasia of stomach and duodenum without bleeding; K20.90 Esophagitis, unspecified without bleeding; K44.9 Diaphragmatic hernia without obstruction or gangrene; K21.9 Gastro-esophageal reflux disease without esophagitis; D64.9 Anemia, unspecified; F50.89 Other specified eating disorder; R79.82 Elevated C-reactive protein (CRP); R70.0 Elevated erythrocyte sedimentation rate; R82.90 Unspecified abnormal findings in urine; G89.29 Other chronic pain; Z88.1 Allergy status to other antibiotic agents; Z88.2 Allergy status to sulfonamides; Z01.812 Encounter for preprocedural laboratory examination; Z20.822 Contact with and (suspected) exposure to COVID-19; Z68.41 Body mass index [BMI] 40.0-44.9, adult; Z86.14 Personal history of Methicillin resistant Staphylococcus aureus infection; Z86.16 Personal history of COVID-19; Z87.01 Personal history of pneumonia (recurrent)
CPT/HCPCS: 43239; 45380; 45384; 81025; J2001; J2250; J2704; J3010; U0002; 45378